=== PATIENT | female | born 2000 | race Caucasian/White ===

== ENCOUNTER → 2023-03-22 | Outpatient (CLI) | payer BC, SELFPAY ==
[2023-03-26 21:06] LABS: Chlamydia By Nucleic Acid AMP Negative (Negative); Gonococcus By Nucleic Acid AMP Negative (Negative)
[2023-03-29 20:22] LABS: HPV Reflexed? NOT INDICATED
== END | disposition home or self-care (01) ==
PROVIDERS: Referring Provider Advanced Practice Midwife; Visit Provider Advanced Practice Midwife
DX: Z34.90 Encounter for supervision of normal pregnancy, unspecified, unspecified trimester (principal)
CPT/HCPCS: 87086; 87491; 87591; 88175; G0145

== ENCOUNTER → 2023-04-19 | Outpatient (CLI) | payer BC, SELFPAY ==
--- OUTSIDE RECORDS SUMMARY | 2023-04-19 09:15 | XMS RPT_ITS | CCD ---
Author Name Unknown Address [address] [facility] [address] [place] [id number] Organization [facility] Care Team Providers Care Bellows Tester Name Role Phone Nathanata, Kamran Stone Unavailable Unavail able Salata, Kamran Blancohan Unavailable Unavail able Salata, Kamran Chase Unavailable Unavail able Salata, Kamran Chase Unavailable Unavail able Newbill, Uvaldo Marin Unavailable Unavailable Newbill, Uvaldo Marin Unavailable Unavailable MicahLaureen tineo L Unavailable Unavailable Pendlebury, Sg S Unavailable Unavailabl e Pendlebury, Sg S Unavailable Unavailabl e Micah, Laureen L Unavailable Unavailable Required, No Pcp Unavailable Unavailable Felipe Longo Unavailable Unavailable None, No PCP Unavailable Unavailable Unavailable Unavailable Alma Goss Unavailable No, Physician Primary Care Provider Unavailabl e NO, PHYSICIAN Primary Care Unavailable ROGELIO SCOTT Attending Unavailable NO, PHYSICIAN Primary Care Unavailable ROGELIO SCOTT Attending Unavailable ROGELIO SCOTTRY Attending Unavailable NO, PHYSICIAN Primary Care Unavailable Allergies Allergy Classification Reported Allergen(s) Allergy Type Date of Onset Reaction(s) Facility (1 source) cotton; Translations: [cotton] Propensity to adverse reactions to drug (disorder) [facility] Repository (6 sources) Metoclopramide; Translations: [Reglan] Drug Allergy 3 Anxiety, Other (See Comments) [facility] (4 sources) Silk Cotton Tree (Bombax Sabine); Translations: [SILK COTTON TREE (BOMBAX CEIBA)] Propensity to adverse reactions to drug 3 Other (See Comments) [facility] (1 source) Metoclopramide; Translations: [METOCLOPRAMIDE ] Drug Allergy 3 [facility] Repository Medications Current Medications Medication Drug Class(es) Dates Sig (Normalized) Sig (Original) acetaminophen 325 mg / oxyCODONE hydrochloride 5 mg oral tablet (1 source) Opioid Agonist Start: 02-26-2017 take 1 tablet by mouth every six hours acetaminophen-oxyCO DONE 325 mg-5 mg oral tablet ; 1-2 tab(s) orally every 4-6 hour as needed pain Quantity: 60 Refills: 0 Ordered: 26-Feb-2017 LeticiajenyYojana Start: 26-Feb-2017 Status: Other Generic Substitution Allowed Comments: Caution federal law prohibits the transfer of this drug to any person other than the person for whom it was prescribed.May cause drowsiness. Alcohol may intensify this effect. Use care when operating dangerous machinery.This prescription cannot be refilled.This product contains acetaminophen. Do not use with any other product containing acetaminophen to prevent possible liver damage.Using more of this medication than prescribed may cause serious breathing problems. Completed/Discontinued Medications Medication Drug Class(es) Dates Sig (Normalized) Sig (Original) busPIRone hydrochloride 5 mg oral tablet (3 sources) Start: 12-07-2021 take 1 tablet by mouth three times daily as needed for anxiety busPIRone HCl - 5 MG Oral Tablet TAKE 1 TABLET 3 times daily PRN anxiety Quantity: 90 Refills: 0 Ordered: 07-Dec-2021 Alma Hallman Start : 07-Dec-2021 Active gabapentin 300 mg oral capsule (6 sources) Anti-epileptic Agent Start: 12-06-2021 take 1 capsule by mouth at bedtime Gabapentin 300 MG Oral Capsule TAKE 1 CAPSULE Bedtime Quantity: 30 Refills: 11 Ordered: 26-Jul-2022 Regina Tucker DO Start : 06-Dec-2021 Active ibuprofen 800 mg oral tablet (4 sources) Nonsteroidal Anti-inflammatory Drug Start: 02-17-2020 End: 02-26-2020 take 1 tablet by mouth twice daily at mealtime IBU 800 mg oral tablet ; 1 tab(s) orally 2 times a day Quantity: 20 Refills: 0 Ordered: 17-Feb-2020 Johnny Prado Start: 17-Feb-2020 End: 26-Feb-2020 Generic Substitution Allowed Comments: Do not take this drug if you are .It is very important that you take or use this exactly as directed. Do not skip doses or discontinue unless directed by your doctor.May cause drowsiness or dizziness.Obtain medical advice before taking any non-prescription drugs as some may affect the action of this medication.Take with food or milk. Problems Active Problems Problem Classification Problem Date Documented Da te Episodic/Chronic Administrative/social admission (3 sources) Patient encounter status; Translations: [Other reasons for seeking consultation] Episodic Anxiety disorders (3 sources) Anxiety; Translations: [Anxiety state, unspecified] Chronic Cardiac dysrhythmias (3 sources) Tachycardia; Translations: [Tachycardia, unspecified] Episodic Deficiency and other anemia (3 sources) Hemoglobin low; Translations: [Anemia, unspecified] Episodic Esophageal disorders (3 sources) Gastroesophageal reflux disease; Translations: [Esophageal reflux] Chronic Headache; including migraine (2 sources) Headache; Translations: [Headache] 12-04-2021 Episodic Headache; including migraine (2 sources) Headache; including migraine 12-03-2021 Past or Other Problems Problem Classification Problem Date Documented Da te Episodic/Chronic Other non-traumatic joint disorders (1 source) Pain in unspecified hip; Translations: [Pain in unspecified hip] Onset: 01-01-2017 Episodic Unclassified (1 source) Other specified joint disorders, unspecified hip; Translations: [Other specified joint disorders, unspecified hip] Onset: 02-26-2017 Results Test Name Value Interpretation Reference Range Facil ity Vital Signs Date Time Vital Sign Value Performing Clinician Facility 07-26-2022 11:35-0400 Body height 162.56 cm Alma Goss Work Phone: [facility] Work Phone: 07-26-2022 11:35-0400 Body mass index (BMI) [Ratio] 24.37 kg/m2 Alma Goss Work Phone: LD[facility]Uvsxsklwqdvc[facility] Work Phone: 07-26-2022 11:35-0400 Body surface area Derived from formula 1.69 m2 Alma Goss Work Phone: [facility]oxb[facility]epw[facility] Work Phone: 07-26-2022 11:35-0400 Body weight 64.41 kg Alma Goss Work Phone: JX[facility]Ks[facility]sy[facility] Work Phone: 07-26-2022 11:35-0400 Diastolic blood pressure 80 mm[Hg] Alma Goss Work Phone: DW[facility]Digiuqqflyno[facility] Work Phone: 07-26-2022 11:35-0400 Systolic blood pressure 118 mm[Hg] Alma Goss Work Phone: RW[facility]Cpohlclqykev[facility] Work Phone: 07-24-2022 09:27-0400 Body temperature 98.91 [degF] Rogelio Pomerene DPM Work Phone: [facility] 07-24-2022 09:27-0400 Diastolic blood pressure 78 mm[Hg] Rogelio Pomerene DPM Work Phone: [facility] 07-24-2022 09:27-0400 Heart rate 72 /min Rogelio Pomerene DPM Work Phone: [facility] 07-24-2022 09:27-0400 Systolic blood pressure 117 mm[Hg] Rogelio Carlita DPM Work Phone: [facility] 07-16-2022 09:01-0400 Body temperature 98.71 [degF] Rogelio Pomerene DPM Work Phone: [facility] 07-16-2022 09:01-0400 Diastolic blood pressure 64 mm[Hg] Rogelio Carlita DPM Work Phone: [facility] 07-16-2022 09:01-0400 Heart rate 84 /min Rogelio Pomerene DPM Work Phone: [facility] 07-16-2022 09:01-0400 Systolic blood pressure 103 mm[Hg] Rogelio Pomerene DPM Work Phone: [facility] 07-10-2022 08:13-0400 Body temperature 98.29 [degF] Rogelio Carlita DPM Work Phone: [facility] 07-10-2022 08:13-0400 Diastolic blood pressure 70 mm[Hg] Rogelio Carlita DPM Work Phone: [facility] 07-10-2022 08:13-0400 Heart rate 65 /min Rogelio Carlita DPM Work Phone: [facility] 07-10-2022 08:13-0400 Systolic blood pressure 108 mm[Hg] Rogelio Pomerene DPM Work Phone: [facility] 12-07-2021 07:49-0400 Body height 162.56 cm No PCP None [facility] Work Phone: 12-07-2021 07:49-0400 Body mass index (BMI) [Ratio] 24.72 kg/m2 No PCP None [facility] Work Phone: 12-07-2021 07:49-0400 Body surface area Derived from formula 1.7 m2 No PCP None [facility] Work Phone: 12-07-2021 07:49-0400 Body weight 65.31 kg No PCP None [facility] Work Phone: 12-07-2021 07:49-0400 Diastolic blood pressure 70 mm[Hg] No PCP None [facility] Work Phone: 12-07-2021 07:49-0400 Heart rate 83 /min No PCP None [facility] Work Phone: 12-07-2021 07:49-0400 SaO2% (BldA) [Mass fraction] 99 % No PCP None [facility] Work Phone: 12-07-2021 07:49-0400 Systolic blood pressure 110 mm[Hg] No PCP None [facility] Work Phone: 12-06-2021 10:44-0400 Body height 162.56 cm No PCP None [facility] Work Phone: 12-06-2021 10:44-0400 Body mass index (BMI) [Ratio] 24.47 kg/m2 No PCP None [facility] Work Phone: 12-06-2021 10:44-0400 Body surface area Derived from formula 1.69 m2 No PCP None [facility] Work Phone: 12-06-2021 10:44-0400 Body weight 64.67 kg No PCP None [facility] Work Phone: 12-06-2021 10:44-0400 Diastolic blood pressure 82 mm[Hg] No PCP None [facility] Work Phone: 12-06-2021 10:44-0400 Heart rate 83 /min No PCP None [facility] Work Phone: 12-06-2021 10:44-0400 Respiratory rate 20 /min No PCP None [facility] Work Phone: 12-06-2021 10:44-0400 Systolic blood pressure 121 mm[Hg] No PCP None [facility] Work Phone: 12-04-2021 01:30-0400 Diastolic blood pressure 68 mm[Hg] No Pcp Required [facility] 12-04-2021 01:30-0400 Heart rate 88 /min No Pcp Required [facility] 12-04-2021 01:30-0400 Respiratory rate 16 /min No Pcp Required [facility] 12-04-2021 01:30-0400 SaO2% (BldA) [Mass fraction] 98 % No Pcp Required [facility] 12-04-2021 01:30-0400 Systolic blood pressure 123 mm[Hg] No Pcp Required [facility] 12-03-2021 22:10-0400 Body height 165.1 cm No Pcp Required [facility] 12-03-2021 22:10-0400 Body temperature 99.14 [degF] No Pcp Required [facility] 12-03-2021 22:10-0400 Body weight 65.9 kg No Pcp Required [facility] Encounters Encounter Date Encounter Type Care Provider Facility Start: 07-26-2022 Office outpatient vi sit 15 minutes Alma Goss Work Phone: [facility] Work Phone: Start: 07-24-2022 End: 07-24-2022 ambulatory ROGELIO SCOTT [facility] Start: 07-24-2022 End: 07-24-2022 Postop follow up visit related to original px Rogelio Guadalupejuan manuel BeckhamPomerene DPM Work Phone: [facility] Procedures Date Procedure Procedure Detail Performing Clinician Start: 07-10-2022 NURSING COMMUNICATION D kaleb Butcherjuan manuel BeckhamCarlita DPM Work Phone: Start: 12-03-2021 End: 12-03-2021 EKG impression Felipe Longo Start: 02-26-2017 Anesthesia arthrosco pic hip joint procedure Kamran Mahmood Start: 02-26-2017 Arthroscopy hip surg ical w/removal loose/fb Kamran Mahmood Start: 02-26-2017 Arthroscopy hip w/acetabuloplasty Kamran Mahmood Start: 02-26-2017 Arthroscopy hip w/femoroplasty Kamran Mahmood Start: 02-26-2017 Injection anes lmbr/ thrc paravertbrl sympathetic Kamran Mahmood Start: 02-26-2017 Unlisted procedure arthroscopy Kamran Mahmood Start: 01-30-2017 Operative procedure on hip No PCP None Plan of Treatment Date Care Activity Detail Author Start: 04-10-2023 JAYCOBV, Provider: Regina Tucker, Status: Pen, Time: 1:40 PM FUVGENERAL, Provider: Regina Tucker, Status: Pen, Time: 1:40 PM [facility] Work Phone: Start: 11-30-2022 Influenza vaccination Sequential Influenza Vaccine (Season Ended) [facility] Start: 07-26-2022 FUVGENEROMAINE, Provider: Regina Tucker, Status: Pen, Time: 11:30 AM FUVGENERAL, Provider: Regina Tucker, Status: Pen, Time: 11:30 AM [facility] Work Phone: Start: 07-24-2022 End: 07-24-2022 Follow-up encounter 07/24/2022 9:15 AM EDT Follow-Up [facility] [address] [place] [address] Rogelio Scott, DPM [address] [place] [address] [facility] Physician [facility] Start: 07-16-2022 End: 07-16-2022 Patient encounter procedure 07/16/2022 9:00 AM EDT Office Visit [facility] Physician [facility] [address] [place] [id number] Rogelio Scott, DPM [address] [place] [address] [facility] Physician [facility] Start: 02-01-2018 Hepatitis C screening Hepatitis C Screening [facility] Start: 02-01-2015 HIV screening HIV Screening [facility] Start: 2012 Depression screening using PHQ-9 (Patient Health Questionnaire 9) score Depression Screening (PHQ-2/9) [facility] Start: 02-01-2011 Vaccination for human papillomavirus HPV Vaccines (1 - 2-dose series) [facility] Start: 02-01-2003 History and physical examination, annual for health maintenance Wellness Visit [facility] Start: 2000 COVID-19 Vaccine (#1) COVID-19 Vaccine (#1) [facility] Start: 2000 Screening for Chlamydia trachomatis Chlamydia Screening [facility] Start: 2000 Screening for malignant neoplasm of cervix Pap Smear [facility] Start: 2000 Tetanus vaccination Tetanus: Every 10yrs [facility] Payers Date Payer Category Payer Unknown [id number] 2017 Unknown 2000 Unknown [id number] 2000 Unknown [id number] [id number] 2000 Unknown [id number] [id number] 2000 Unknown [id number] [id number]. [id number] 1981 Unknown [id number] Unknown [id number] Social History Date Type Detail Facility [facility] Tobacco smoking consumption unknown [facility] Start: 07-10-2022 End: 07-24-2022 Denies alcohol consumption Denies alcohol consumption [facility] Work Phone: Start: 07-10-2022 [facility] Start: 07-10-2022 Tobacco use and exposure Smokeless tobacco non-user [facility] Start: 07-10-2022 End: 07-26-2022 Alcohol intake Lifetime non-drinker (finding) [facility] Start: 2000 Sex Assigned At Not on file [facility] Start: 07-10-2022 End: 07-24-2022 Gender identity Not on file [facility] Start: 06-30-2022 End: 07-24-2022 Exposure to SARS-CoV-2 (event) Not sure [facility] History of Present illness Narrative 07-26-2022 Rogelio Scott DPM - 07/26/2022 3:56 PM EDT Note Date & Type Note Facility 07-26-2022 History of Presen t illness Narrative Images from the original note were not included. Rogelio Scott DPM Patient Name: Elaine Peguero. . Date of : 2000, 22 y.o.. Gender: female. Subjective: Patient is a pleasant 22-year-old female who presents to clinic for follow-up evaluation of her left great toenail phenol matrixectomy procedure. States that she is doing well. Denies any pain. Admits to minimal drainage due to being on her feet every day. Has been soaking in Epsom salt as instructed. Denies fevers, chills, nausea, vomiting, chest pain, shortness of breath, or any other constitutional symptoms. Physical Examination: BP 117/78 (BP Location: Right arm, Patient Position: Sitting, BP Cuff Size: Adult) Pulse 72 Temp 98.9 F (37.2 C) (Infrared) LMP 06/30/2022 (Exact Date) General Appearance: Alert, cooperative, no distress, appears stated age. Podiatric Exam Vascular: DP and PT pulses are palpable 2/4. Capillary refill time is less than 3 secs to distal digits. Skin temperature is warm to warm from proximal tibial tuberosity to distal digit. Neurological: Gross sensation is intact. Protective sensation is intact. Dermatologic: The left great toenail is absent secondary to recent phenol matrixectomy procedure. Nail bed is clean and dry. No surrounding erythema, edema or any acute signs of infection. Interdigital spaces are clean dry and intact. Musculoskeletal: No pain on palpation to the dorsal aspect of the left great nailbed. Patient is able to wiggle digits. Ankle joint range of motion is intact. Muscle strength is 5/5 to dorsiflexors, plantar flexors, inverters and everters. Compartments soft and compressible. No calf pain Diagnoses: 1. Onychomycosis 2. Pain due to onychomycosis of toenail of left foot Assessment/Plan: Patient was seen and evaluated. Discussed all clinical findings. Patient is doing well overall postoperatively. No surrounding erythema, edema or any acute signs of infection. Patient can stop soaking at this time. Patient may resume all activity without restriction. All questions were answered to patient satisfaction. Patient understands to call with any questions or concerns. Follow-up as needed. This note was partially created using voice recognition software and is inherently subject to errors including those of syntax and sound-alike substitutions which may escape proofreading. In such instances, original meaning may be extrapolated by contextual derivation. Rogelio Scott DPM, MS Podiatric Physician & Surgeon documented in this encounter [facility] History of Present illness Narrative 07-16-2022 Rogelio Scott DPM - 07/16/2022 9:26 AM EDT Note Date & Type Note Facility 07-16-2022 History of Presen t illness Narrative Images from the original note were not included. Rogelio Scott DPM Patient Name: Elaine Peguero. . Date of : 2000, 22 y.o.. Gender: female. Subjective: Patient is a pleasant 22-year-old female who presents to clinic for follow-up evaluation of her left great toenail phenol matrixectomy procedure. States that she is doing well. Denies any pain. Admits to drainage due to being on her feet every day. Has been soaking in Epsom salt as instructed. Denies fevers, chills, nausea, vomiting, chest pain, shortness of breath, or any other constitutional symptoms. Past Medical History: Diagnosis Date GERD (gastroesophageal reflux disease) Occipital neuralgia Tachycardia Past Surgical History: Procedure Laterality Date DISLOCATION WITH REPAIR AND RECONSTRUCTION HIP Left Social History Socioeconomic History Marital status: Tobacco Use Smoking status: Never Smokeless tobacco: Never Substance and Sexual Activity Alcohol use: Never Drug use: Never Physical Examination: BP 103/64 (BP Location: Left arm, Patient Position: Sitting, BP Cuff Size: Adult) Pulse 84 Temp 98.7 F (37.1 C) (Infrared) LMP 06/30/2022 (Exact Date) General Appearance: Alert, cooperative, no distress, appears stated age. Podiatric Exam Vascular: DP and PT pulses are palpable 2/4. Capillary refill time is less than 3 secs to distal digits. Skin temperature is warm to warm from proximal tibial tuberosity to distal digit. Neurological: Gross sensation is intact. Protective sensation is intact. Dermatologic: The left great toenail is absent secondary to recent phenol matrixectomy procedure. No surrounding erythema, edema or any acute signs of infection. Interdigital spaces are clean dry and intact. Musculoskeletal: No pain on palpation to the dorsal aspect of the left great nailbed. Patient is able to wiggle digits. Ankle joint range of motion is intact. Muscle strength is 5/5 to dorsiflexors, plantar flexors, inverters and everters. Compartments soft and compressible. No calf pain Diagnoses: 1. Onychomycosis 2. Pain due to onychomycosis of toenail of left foot Assessment/Plan: Patient was seen and evaluated. Discussed all clinical findings. Patient is doing well overall postoperatively with exception of serous drainage noted from the nailbed. No surrounding erythema, edema or any acute signs of infection. Instructed the patient to continue soaking in Epsom salt twice daily. Patient is to follow-up in 1 week for evaluation All questions were answered to patient satisfaction. Patient understands to call with any questions or concerns. This note was partially created using voice recognition software and is inherently subject to errors including those of syntax and sound-alike substitutions which may escape proofreading. In such instances, original meaning may be extrapolated by contextual derivation. Rogelio Scott DPM, MS Podiatric Physician & Surgeon documented in this encounter [facility] Instructions 07-10-2022 Patient Instructions Note Date & Type Note Facility 07-10-2022 Instructions Phuong Hernández, TECHNOLOGIST - 07/10/2022 9:05 AM EDT POST NAIL SURGERY INSTRUCTIONS: General Information: Stay off your feet as much as possible today. You may wear any shoe, sandal, or open toe footwear that does not squeeze or constrict your toe. Your toe may remain numb for up to 6-10 hours after the procedure. Bleeding/ Drainage: Slight bleeding, discoloration and/ or red, pink, orange drainage is normal. Discomfort: You can elevate your foot to help alleviate minor swelling, bleeding and discomfort. You may also take aspirin, Tylenol or other over- the- counter pain relievers as directed on the package. If pain is not controlled to your comfort, please contact our office. Removing the surgical bandage/ dressing: The day after the surgery, carefully remove the dressing and shower/ bathe as normal. If the gauze or dressing sticks to the surgical area, dampen it with water or shower/ bathe with the dressing in place. This will make the dressing easier to remove with minimal discomfort. Blot dry with a clean cloth. A band-aid and antibiotic ointment should be changed twice daily on the surgical area until your follow-up appointment with the provider. Soaking Instructions Remove the dressing the day after your procedure and shower/ bathe as normal. Blot dry with a clean cloth. Soak the foot twice daily in warm soapy water or use a mixture of 1 quart warm water with cup Epsom salts. After soaking, apply antibiotic ointment and a Band-Aid twice daily until follow-up appointment. documented in this encounter [facility] History of Present illness Narrative 07-10-2022 Rogelio Scott DPM - 07/10/2022 8:37 AM EDT Note Date & Type Note Facility 07-10-2022 History of Presen t illness Narrative Images from the original note were not included. NEW Patient Visit Rogelio Scott DPM Patient Name: Elaine Peguero. . Date of : 2000, 22 y.o.. Gender: female. Subjective: Patient is a pleasant 22-year-old female who presents to clinic for left great toe nail that is fungal and thickened and causes her pain with with ambulation. Patient would like it to get it removed permanently as was previously done with her right great toenail. No other pedal complaints at this time. Denies fevers, chills, nausea, vomiting, chest pain, shortness of breath, or any other constitutional symptoms. Past Medical History: Diagnosis Date GERD (gastroesophageal reflux disease) Occipital neuralgia Tachycardia Past Surgical History: Procedure Laterality Date DISLOCATION WITH REPAIR AND RECONSTRUCTION HIP Left Social History Socioeconomic History Marital status: Tobacco Use Smoking status: Never Smokeless tobacco: Never Substance and Sexual Activity Alcohol use: Never Drug use: Never Physical Examination: BP 108/70 (BP Location: Left arm, Patient Position: Sitting, BP Cuff Size: Adult) Pulse 65 Temp 98.3 F (36.8 C) (Infrared) LMP 06/30/2022 (Exact Date) General Appearance: Alert, cooperative, no distress, appears stated age. Podiatric Exam Vascular: DP and PT pulses are palpable 2/4. Capillary refill time is less than 3 secs to distal digits. Skin temperature is warm to warm from proximal tibial tuberosity to distal digit. Neurological: Gross sensation is intact. Protective sensation is intact. Dermatologic: The left great toenail is thickened, dystrophic and mycotic with subungual debris. No surrounding erythema, edema or any acute signs of infection. Interdigital spaces are clean dry and intact. Musculoskeletal: Pain on palpation to the dorsal aspect of the left great toenail. Patient is able to wiggle digits. Ankle joint range of motion is intact. Muscle strength is 5/5 to dorsiflexors, plantar flexors, inverters and everters. Compartments soft and compressible. No calf pain Diagnoses: 1. Onychomycosis 2. Pain due to onychomycosis of toenail of left foot Assessment/Plan: Patient was seen and evaluated. Discussed all clinical findings. -With patient's painful and onychomycotic left great toenail, I discussed performing an in office nail surgery involving phenol matrixectomy. Patient is agreeable to this plan. See procedure below. PROCEDURE NOTE: Written consent was obtained prior to beginning the procedure. All risks and benefits were discussed with patient. No guarantees were made. PREOPERATIVE DX: Painful onychomycosis, left great toe nail POSTOPERATIVE DX: Painful onychomycosis, left great toe nail PROCEDURE PERFORMED: Phenol matrixectomy, left great toenail The patient's left great toe was anesthetized using 5 cc of 2% lidocaine plain. The left great toe was scrubbed and prepped under proper sterile technique. The left great toenail was excised. No residual nail spicules were found. Phenol was utilized to cauterize the nail matrix. The surgical site was flushed copiously with sterile saline. Applied wound gel to the surgical site. The left great toe was then dressed using 4 x 4, Kerlix and Coban. Patient tolerated the procedure well without any complications. -At the end of the procedure, the patient was provided with at home instructions. -Patient was educated on the signs of infection such as excessive redness, swelling, drainage, malodor, pain, etc. Patient understands to call our office immediately or to report to the emergency room. -All questions were answered to patient satisfaction. Patient understands to call with any questions or concerns. -Patient will return to clinic in 1 week for evaluation This note was partially created using voice recognition software and is inherently subject to errors including those of syntax and sound-alike substitutions which may escape proofreading. In such instances, original meaning may be extrapolated by contextual derivation. Rogelio Scott DPM, MS Podiatric Physician & Surgeon documented in this encounter [facility] History of Present illness Narrative 12-06-2021 Note Date & Type Note Facility 12-06-2021 History of Present illness Narrative Presents today for TO ESTABLISH NEW. C/O TACHYCARDIA ON/OFF X SEVERAL WEEKS - MONTH modifying factors consists of SEEN AT [facility] ER ON 12/06/21. EKG UNREMARKABLE associated symptoms consist of GROSSMAN. ANXIETY. BURNING CP. prior treatment consists of medication NONEC/O INSOMNIA X 2 WEEKS modifying factors consists of SHE HAS A H/O [place] WHEN SHE WAS BABY. NO RECENT TESTING DONE associated symptoms consist of WAKES UP GASPING ON/OFF. FATIGUE. prior treatment consists of medication MELATONINHA- OCCIPITAL NEURALGIA. FOLLOWING WITH NEUROINSOMNIA-SAW NEURO YESTERDAY AND STARTED ON GABAPENTIN [facility] Work Phone: Evaluation note Note Date & Type Note Facility documented in this encounter [facility] Evaluation note Note Date & Type Note Facility documented in this encounter [facility] Evaluation note Note Date & Type Note Facility documented in this encounter [facility] History of Present illness Narrative Note Date & Type Note Facility History of Present illness Narrative Ms. Dobson is a 22 year old female presenting to the neurology clinic today for follow up. The patient was accompanied to the appointment by her mother who significantly contributed to the history.She has been taken it at night and she tried to stop taking it however the pain came back. The symptoms still come and go. She doesn't want to get an injection. She does sometimes get the pain above her eyebrow. She is not getting any side effects.She was diagnosed with tachycardia and GERD. She is omeprazole daily.She is afraid to take buspar. [facility] Work Phone: Summary Purpose Family History No Family History Records FoundUnknown Family Member Name Dates Details Family history of coronary a rtery disease: Mother(V17.3, Z82.49) Status:Active Family history of autoimmune disorder: Mother(V19.8, Z83.2) Status:Active Family history of lung cance r: Maternal Grandmother, Maternal Grandfather(V16.1, Z80.1) Status:Active Gastroparesis: Mother Status:Active Family history of myocardial infarction: Mother(V17.3, Z82.49) Comments:10/25/2021; Status:Active Family history of deep venou s thrombosis: Mother(V17.49, Z82.49) Status:Active No pertinent family history: Father(V49.89, Z78.9) Status:Active Unknown Family Member Name Dates Details Family history of coronary a rtery disease: Mother(V17.3, Z82.49) Status:Active Family history of autoimmune disorder: Mother(V19.8, Z83.2) Status:Active Family history of lung cance r: Maternal Grandmother, Maternal Grandfather(V16.1, Z80.1) Status:Active Gastroparesis: Mother Status:Active Family history of myocardial infarction: Mother(V17.3, Z82.49) Comments:10/25/2021; Status:Active Family history of deep venou s thrombosis: Mother(V17.49, Z82.49) Status:Active No pertinent family history: Father(V49.89, Z78.9) Status:Active Unknown Family Member Name Dates Details Family history of coronary a rtery disease: Mother(V17.3, Z82.49) Status:Active Family history of autoimmune disorder: Mother(V19.8, Z83.2) Status:Active Family history of lung cance r: Maternal Grandmother, Maternal Grandfather(V16.1, Z80.1) Status:Active Gastroparesis: Mother Status:Active Family history of myocardial infarction: Mother(V17.3, Z82.49) Comments:10/25/2021; Status:Active Family history of deep venou s thrombosis: Mother(V17.49, Z82.49) Status:Active No pertinent family history: Father(V49.89, Z78.9) Status:Active Advance Directives No Advanced Directives Records FoundNo Advanced Directives Records FoundNo Advanced Directives Records FoundNo Advanced Directives Records FoundNo Advanced Directives Records FoundNo Advanced Directives Records Found Reason for Referral * tachycardia, headachetachycardia, headache Chief Complaint EST NEW; ED F/U -TACHYCARDIA, GROSSMAN AND INSOMNIA-SAW NEURO YESTERDAY AND STARTED ON GABAPENTINpt is here for: occ neuralgia Additional Source Comments INFORMATION SOURCE (unrecogn ized section and content) DATE CREATED AUTHOR AUTHOR'S ORGANIZ ATION 09/24/2017 [facility] DATE CREATED AUTHOR AUTHOR'S ORGANIZ ATION 03/29/2018 [facility] DATE CREATED AUTHOR AUTHOR'S ORGANIZ ATION 12/09/[address] [facility] DATE CREATED AUTHOR AUTHOR'S ORGANIZ ATION 07/25/2022 [facility] DATE CREATED AUTHOR AUTHOR'S ORGANIZ ATION 08/02/2022 [employer] <item> Privacy Markings (unrecogniz ed section and content) Section Author: Gem Dupree PROHIBITION ON REDISCLOSURE OF CONFIDENTIAL INFORMATION This notice accompanies a disclosure of information concerning a client made to you with the consent of such client. Reason for Visit (unrecogniz ed section and content) Reason Comments Post-op Post op left great p henol matrixectomy. Care Teams (unrecognized sec tion and content) Bellows Tester Relationship Specialty Start Date End Date No, Physician [facility] PCP - General 07/10/22 Bellows Tester Relationship Specialty Start Date End Date No, Physician [facility] PCP - General 07/10/22 FOR RECORDS PERTAINING TO PATIENTS WHO ARE OR HAVE BEEN ENROLLED IN A CHEMICAL DEPENDENCY/SUBSTANCEABUSE PROGRAM, SOME INFORMATION MAY BE OMITTED. This clinical summary was aggregated from multiple sources. Caution should be exercised in using it in the provision of clinical care. This summary normalizes information from multiple sources, and as a consequence, information in this document may materially change the coding, format and clinical context of patient data. In addition, data may be omitted in some cases. CLINICAL DECISIONS SHOULD BE BASED ON THE PRIMARY CLINICAL RECORDS. [facility]. provides no warranty or guarantee of the accuracy or completeness of information in this document.
[2023-04-19 09:35] LABS: Absolute Lymphocyte Count 1.32 X10^3/uL (0.83-4.51); Basophil# 0.03 X10^3/uL; Basophil% 0.3 % (0-1); Eosinophil# 0.05 X10^3/uL; Eosinophils% 0.6 % (0-5); Hematocrit 31.9 % (37-47); Hemoglobin 9.8 g/dL (12.0-15.0); Lymphocyte # 1.32 X10^3/ul (0.83-4.51); Lymphocyte % 14.7 % (19-41); Mean Corp Hgb Conc 30.7 g/dL (32-36); Mean Corpuscular Hgb 24.4 pg (27.0-32.0); Mean Corpuscular Volume 79.4 fL (81-99); Mean Platelet Vol. 9.7 fl (6.2-12.0); Monocyte# 0.57 X10^3/uL; Monocyte% 6.3 % (0-10); NRBC Flagged by Analyzer 0 % (0-5); Neutrophil # 6.97 X10^3/uL (2.7-7.7); Neutrophil % 77.7 % (47-70); Platelet Count 235 K/mm3 (150-450); RBC Distribution Width CV 16.7 % (11.6-14.6); RBC Distribution Width SD 47.5 fl (35.1-43.9); Red Blood Count 4.02 M/mm3 (4.2-5.4)
[2023-04-19 10:32] LABS: NATERA MAILED SPECIMEN
[2023-04-19 10:45] LABS: HIV - WCH Non-Reactive (Nonreactive); Hepatitis B Surface Antigen Non-Reactive (Nonreactive); Hepatitis C Antibody Non-Reactive (Nonreactive); Rubella IgG Reactive (Nonreactive); Syphilis Antibodies Non-reactive
== END | disposition home or self-care (01) ==
PROVIDERS: Referring Provider Advanced Practice Midwife; Visit Provider Advanced Practice Midwife
DX: Z34.81 Encounter for supervision of other normal pregnancy, first trimester (principal)
CPT/HCPCS: 36415; 85025; 86703; 86762; 86780; 86803; 86850; 86900; 86901; 87340

== ENCOUNTER → 2023-04-22 | Outpatient (CLI) | payer BC, SELFPAY ==
--- OUTSIDE RECORDS SUMMARY | 2023-04-22 17:19 | XMS RPT_ITS | CCD ---
Author Name Unknown Address [address] [place] [address] Organization [facility] Care Team Providers Care Telephone Quotation Clerk Name Role Phone Nathanata, Kamran Stone Unavailable [...] to adverse reactions to drug (disorder) [facility] Repository (6 sources) Metoclopramide; Translations: [Reglan] Drug Allergy 3 Anxiety, Other (See Comments) [facility] (4 sources) Silk [place] (B[place]ax [place]); Translations: [SILK COTTON TREE (BOMBAX [place])] Propensity to adverse reactions to drug 3 Other (See Comments) [facility] (1 source) Metoclopramide; Translations: [METOCLOPRAMIDE ] Drug Allergy 3 [facility] Repository Medications Current Medications Medication [...] height 162.56 cm Alma Goss Work Phone: [facility] [facility] Work Phone: 07-26-2022 11:35-0400 Body mass index (BMI) [Ratio] 24.37 kg/m2 Alma Goss Work Phone: [facility] [facility] Work Phone: 07-26-2022 11:35-0400 Body surface area Derived from formula 1.69 m2 Alma Goss Work Phone: QV[facility]vs[facility] [facility] Work Phone: 07-26-2022 11:35-0400 Body weight 64.41 kg Alma Goss Work Phone: DU[facility]la[facility]qqyokg[facility] [facility] Work Phone: 07-26-2022 11:35-0400 Diastolic blood pressure 80 mm[Hg] Alma Goss Work Phone: EZ[facility]iymvszbsaye[facility] [facility] Work Phone: 07-26-2022 11:35-0400 Systolic blood pressure 118 mm[Hg] Alma Goss Work Phone: TU[facility]bm[facility]ae[facility] [facility] Work Phone: 07-24-2022 09:27-0400 Body temperature 98.91 [degF] Rogelio [place] DPM Work Phone: [facility] 07-24-2022 09:27-0400 Diastolic blood pressure 78 mm[Hg] Rogelio [place] DPM Work Phone: [facility] 07-24-2022 09:27-0400 Heart rate 72 /min Rogelio [place] DPM Work Phone: [facility] 07-24-2022 09:27-0400 Systolic blood pressure 117 mm[Hg] Rogelio Carlita DPM Work Phone: [facility] 07-16-2022 09:01-0400 Body temperature 98.71 [degF] Rogelio [place] DPM Work Phone: [facility] 07-16-2022 09:01-0400 Diastolic blood pressure 64 mm[Hg] Rogelio Carlita DPM Work Phone: [facility] 07-16-2022 09:01-0400 Heart rate 84 /min Rogelio [place] DPM Work Phone: [facility] 07-16-2022 09:01-0400 Systolic blood pressure 103 mm[Hg] Rogelio [place] DPM Work Phone: [facility] 07-10-2022 08:13-0400 Body temperature 98.29 [degF] Rogelio Carlita DPM Work Phone: [facility] 07-10-2022 08:13-0400 Diastolic blood pressure 70 mm[Hg] Rogelio Carlita DPM Work Phone: [facility] 07-10-2022 08:13-0400 Heart rate 65 /min Rogelio Carlita DPM Work Phone: [facility] 07-10-2022 08:13-0400 Systolic blood pressure 108 mm[Hg] Rogelio [place] DPM Work Phone: [facility] 12-07-2021 07:49-0400 Body height 162.56 cm No PCP None [facility] Work Phone: 12-07-2021 07:49-0400 Body mass index (BMI) [Ratio] 24.72 kg/m2 No PCP None [facility] Work Phone: 12-07-2021 07:49-0400 Body surface area Derived from formula 1.7 m2 No PCP None [facility] Work Phone: 12-07-2021 07:49-0400 Body weight 65.31 kg No PCP None [facility] Work Phone: 12-07-2021 07:49-0400 Diastolic blood pressure 70 mm[Hg] No PCP None [facility] Work Phone: 12-07-2021 07:49-0400 Heart rate 83 /min No PCP None [facility] Work Phone: 12-07-2021 07:49-0400 SaO2% (BldA) [Mass fraction] 99 % No PCP None [facility] Work Phone: 12-07-2021 07:49-0400 Systolic blood pressure 110 mm[Hg] No PCP None [facility] Work Phone: 12-06-2021 10:44-0400 Body height 162.56 cm No PCP None [facility] Work Phone: 12-06-2021 10:44-0400 Body mass index (BMI) [Ratio] 24.47 kg/m2 No PCP None [facility] Work Phone: 12-06-2021 10:44-0400 Body surface area Derived from formula 1.69 m2 No PCP None [facility] Work Phone: 12-06-2021 10:44-0400 Body weight 64.67 kg No PCP None [facility] Work Phone: 12-06-2021 10:44-0400 Diastolic blood pressure 82 mm[Hg] No PCP None [facility] Work Phone: 12-06-2021 10:44-0400 Heart rate 83 /min No PCP None [facility] Work Phone: 12-06-2021 10:44-0400 Respiratory rate 20 /min No PCP None [facility] Work Phone: 12-06-2021 10:44-0400 Systolic blood pressure 121 mm[Hg] No PCP None [facility] Work Phone: 12-04-2021 01:30-0400 Diastolic blood pressure 68 mm[Hg] No Pcp Required [facility] 12-04-2021 01:30-0400 Heart rate 88 /min No Pcp Required [facility] 12-04-2021 01:30-0400 Respiratory rate 16 /min No Pcp Required [facility] 12-04-2021 01:30-0400 SaO2% (BldA) [Mass fraction] 98 % No Pcp Required [facility] 12-04-2021 01:30-0400 Systolic blood pressure 123 mm[Hg] No Pcp Required [facility] 12-03-2021 22:10-0400 Body height 165.1 cm No Pcp Required [facility] 12-03-2021 22:10-0400 Body temperature 99.14 [degF] No Pcp Required [facility] 12-03-2021 22:10-0400 Body weight 65.9 kg No Pcp Required [facility] Encounters Encounter Date Encounter Type Care Provider Facility Start: 07-26-2022 Office outpatient vi sit 15 minutes Alma Goss Work Phone: [facility] Work Phone: Start: 07-24-2022 End: 07-24-2022 ambulatory ROGELIO SCOTT [facility] Start: 07-24-2022 End: 07-24-2022 Postop follow up visit related to original px Rogelio Guadalupejuan manuel Beckham[place] DPM Work Phone: [facility] Procedures Date Procedure Procedure [...] Regina Tucker, Status: Pen, Time: 1:40 PM [facility] Work Phone: Start: 11-30-2022 Influenza vaccination Sequential Influenza Vaccine (Season Ended) [facility] Start: 07-26-2022 FUVGENEROMAINE, Provider: Regina Tucker, Status: Pen, Time: 11:30 AM FUVGENERAL, Provider: Regina Tucker, Status: Pen, Time: 11:30 AM [facility] Work Phone: Start: 07-24-2022 End: 07-24-2022 Follow-up encounter 07/24/2022 9:15 AM EDT Follow-Up [facility] [address] [place] [address] Rogelio Scott, DPM [address] [place] [address] [facility] Start: 07-16-2022 End: 07-16-2022 Patient encounter procedure 07/16/2022 9:00 AM EDT Office Visit [facility] [address] [place] [phone] Rogelio Scott, DPM [address] [place] [address] [facility] Start: 02-01-2018 Hepatitis C screening Hepatitis C Screening [facility] Start: 02-01-2015 HIV screening HIV Screening [facility] Start: 2012 Depression screening using PHQ-9 (Patient Health Questionnaire 9) score Depression Screening (PHQ-2/9) [facility] Start: 02-01-2011 Vaccination for human papillomavirus HPV Vaccines (1 - 2-dose series) [facility] Start: 02-01-2003 History and physical examination, annual for health maintenance Wellness Visit [facility] Start: 2000 COVID-19 Vaccine (#1) COVID-19 Vaccine (#1) [facility] Start: 2000 Screening for Chlamydia trachomatis Chlamydia Screening [facility] Start: 2000 Screening for malignant neoplasm of cervix Pap Smear [facility] Start: 2000 Tetanus vaccination Tetanus: Every 10yrs [facility] Payers Date Payer Category Payer Unknown [id number] 2017 Unknown 2000 Unknown [id number] 2000 Unknown [id number] [id number] 2000 Unknown [id number] [id number] 2000 Unknown [id number] [id number]. [id number] 1981 Unknown [id number] Unknown [id number] Social History Date Type Detail Facility [facility] Tobacco smoking consumption unknown [facility] Start: 07-10-2022 End: 07-24-2022 Denies alcohol consumption Denies alcohol consumption [facility] Work Phone: Start: 07-10-2022 [facility] Start: 07-10-2022 Tobacco use and exposure Smokeless tobacco non-user [facility] Start: 07-10-2022 End: 07-26-2022 Alcohol intake Lifetime non-drinker (finding) [facility] Start: 2000 Sex Assigned At Not on file [facility] Start: 07-10-2022 End: 07-24-2022 Gender identity Not on file [facility] Start: 06-30-2022 End: 07-24-2022 Exposure to SARS-CoV-2 (event) Not sure [facility] History of Present illness Narrative 07-26-2022 Rogelio [...] Physician & Surgeon documented in this encounter [facility] History of Present illness Narrative 07-16-2022 Rogelio [...] Physician & Surgeon documented in this encounter [facility] Instructions 07-10-2022 Patient Instructions Note Date & [...] until follow-up appointment. documented in this encounter [facility] History of Present illness Narrative 07-10-2022 Rogelio [...] Physician & Surgeon documented in this encounter [facility] History of Present illness Narrative 12-06-2021 Note Date & Type Note Facility 12-06-2021 History of Present illness Narrative Presents today for TO ESTABLISH NEW. C/O TACHYCARDIA ON/OFF X SEVERAL WEEKS - MONTH modifying factors consists of SEEN AT [facility] ER ON 12/06/21. EKG UNREMARKABLE associated symptoms [...] NEUROINSOMNIA-SAW NEURO YESTERDAY AND STARTED ON GABAPENTIN [facility] Work Phone: Evaluation note Note Date & Type Note Facility documented in this encounter [facility] Evaluation note Note Date & Type Note Facility documented in this encounter [facility] Evaluation note Note Date & Type Note Facility documented in this encounter [facility] History of Present illness Narrative Note Date [...] omeprazole daily.She is afraid to take buspar. [facility] Work Phone: Summary Purpose Family History [...] DATE CREATED AUTHOR AUTHOR'S ORGANIZ ATION 09/24/2017 [facility] DATE CREATED AUTHOR AUTHOR'S ORGANIZ ATION 03/29/2018 [facility] DATE CREATED AUTHOR AUTHOR'S ORGANIZ ATION 12/09/2021 [facility] DATE CREATED AUTHOR AUTHOR'S ORGANIZ ATION 07/25/2022 [facility] DATE CREATED AUTHOR AUTHOR'S ORGANIZ ATION 08/02/2022 [...] Care Teams (unrecognized sec tion and content) Telephone Quotation Clerk Relationship Specialty Start Date End Date No, Physician [facility] PCP - General 07/10/22 Telephone Quotation Clerk Relationship Specialty Start Date End Date No, Physician [facility] PCP - General 07/10/22 FOR RECORDS PERTAINING [...] BE BASED ON THE PRIMARY CLINICAL RECORDS. [facility]. provides no warranty or guarantee of the accuracy or completeness of information in this document.
== END | disposition home or self-care (01) ==
LOC: LABSPEC 17:01
PROVIDERS: Referring Provider Registered Nurse; Visit Provider Registered Nurse
DX: O23.40 Unspecified infection of urinary tract in pregnancy, unspecified trimester (principal); Z3A.00 Weeks of gestation of pregnancy not specified
CPT/HCPCS: 87086

== ENCOUNTER → 2023-05-29 | Outpatient (CLI) | payer BC, SELFPAY | END | disposition home or self-care (01) | LOC: LABSPEC 16:07 | PROVIDERS: Referring Provider Physician Assistant; Visit Provider Physician Assistant | DX: N39.0 Urinary tract infection, site not specified (principal) | CPT/HCPCS: 87086 ==

== ENCOUNTER → 2023-07-12 | Outpatient (CLI) | payer BC, SELFPAY | END | disposition home or self-care (01) | LOC: LABSPEC 16:43 | PROVIDERS: Referring Provider Obstetrics & Gynecology; Visit Provider Obstetrics & Gynecology | DX: N39.0 Urinary tract infection, site not specified (principal); N89.8 Other specified noninflammatory disorders of vagina | CPT/HCPCS: 87070; 87077; 87086; 87088; 87205 ==

== ENCOUNTER → 2023-08-09 | Outpatient (CLI) | payer BC, SELFPAY ==
[2023-08-09 13:25] LABS: Absolute Lymphocyte Count 1.44 X10^3/uL (0.83-4.51); Absolute Neutrophil Count 7.4 X10^3/uL (2.0-7.7); Basophil# 0.03 X10^3/uL; Basophil% 0.3 % (0-1); Eosinophil# 0.07 X10^3/uL; Eosinophils% 0.7 % (0-5); Hematocrit 33.9 % (37-47); Hemoglobin 10.8 g/dL (12.0-15.0); Lymphocyte # 1.44 X10^3/ul (0.83-4.51); Mean Corp Hgb Conc 31.9 g/dL (32-36); Mean Corpuscular Hgb 28.6 pg (27.0-32.0); Mean Corpuscular Volume 89.9 fL (81-99); Mean Platelet Vol. 9.7 fl (6.2-12.0); Monocyte# 0.56 X10^3/uL; Monocyte% 5.8 % (0-10); NRBC Flagged by Analyzer 0 % (0-5); Neutrophil # 7.37 X10^3/uL (2.7-7.7); Neutrophil % 77.1 % (47-70); Platelet Count 219 K/mm3 (150-450); RBC Distribution Width CV 13.3 % (11.6-14.6); RBC Distribution Width SD 43.5 fl (35.1-43.9); Red Blood Count 3.77 M/mm3 (4.2-5.4); White Blood Count 9.6 K/mm3 (4.4-11.0)
[2023-08-09 13:41] LABS: Glucose Challenge Gest 1H 50g 117 mg/dL (70-140)
[2023-08-09 14:13] LABS: HIV - WCH Non-Reactive (Nonreactive); Syphilis Antibodies Non-reactive
== END | disposition home or self-care (01) ==
LOC: LAB 12:51
PROVIDERS: Referring Provider Obstetrics & Gynecology; Visit Provider Obstetrics & Gynecology
DX: O09.90 Supervision of high risk pregnancy, unspecified, unspecified trimester (principal); Z3A.00 Weeks of gestation of pregnancy not specified; Z13.1 Encounter for screening for diabetes mellitus
CPT/HCPCS: 36415; 82950; 85025; 86703; 86780

== ENCOUNTER → 2023-09-19 | Outpatient (CLI) | payer BC, SELFPAY ==
[2023-09-19 09:20] LABS: Absolute Lymphocyte Count 1.52 X10^3/uL (0.83-4.51); Absolute Neutrophil Count 7.1 X10^3/uL (2.0-7.7); Basophil# 0.03 X10^3/uL; Basophil% 0.3 % (0-1); Eosinophils% 1.1 % (0-5); Hematocrit 35.1 % (37-47); Hemoglobin 11.6 g/dL (12.0-15.0); Lymphocyte # 1.52 X10^3/ul (0.83-4.51); Lymphocyte % 16.2 % (19-41); Mean Corpuscular Hgb 29.7 pg (27.0-32.0); Mean Corpuscular Volume 89.8 fL (81-99); Mean Platelet Vol. 9.4 fl (6.2-12.0); Monocyte% 6.4 % (0-10); NRBC Flagged by Analyzer 0 % (0-5); Neutrophil # 7.05 X10^3/uL (2.7-7.7); Platelet Count 192 K/mm3 (150-450); RBC Distribution Width CV 13.1 % (11.6-14.6); RBC Distribution Width SD 42.3 fl (35.1-43.9); Red Blood Count 3.91 M/mm3 (4.2-5.4); White Blood Count 9.4 K/mm3 (4.4-11.0)
[2023-09-19 17:17] LABS: Xtra Tube EP Lab EXTRA TUBE
== END | disposition home or self-care (01) ==
LOC: PAVLAB 08:57
PROVIDERS: Visit Provider Nurse Practitioner Women's Health
DX: O99.019 Anemia complicating pregnancy, unspecified trimester (principal); Z3A.00 Weeks of gestation of pregnancy not specified
CPT/HCPCS: 36415; 85025

== ENCOUNTER 2023-11-13 19:13 | Inpatient (IN) | payer BC, SELFPAY ==
[2023-11-13 19:29] VITALS: BP 140/83; BP 141/87; PULSE 70; PULSE 76; RESP 16; TEMP 36.3
[2023-11-13 19:39] VITALS: BMI 34.3
[2023-11-13] MEDS: Lactated Ringers 1,000 ML 50 ML IV (20:00)
[2023-11-13 20:16] LABS: Absolute Lymphocyte Count 1.62 X10^3/uL (0.83-4.51); Absolute Neutrophil Count 8.6 X10^3/uL (2.0-7.7); Basophil# 0.02 X10^3/uL; Basophil% 0.2 % (0-1); Eosinophil# 0.05 X10^3/uL; Eosinophils% 0.5 % (0-5); Hematocrit 33.5 % (37-47); Hemoglobin 11.5 g/dL (12.0-15.0); Lymphocyte # 1.62 X10^3/ul (0.83-4.51); Lymphocyte % 14.6 % (19-41); Mean Corp Hgb Conc 34.3 g/dL (32-36); Mean Corpuscular Hgb 29.8 pg (27.0-32.0); Mean Corpuscular Volume 86.8 fL (81-99); Mean Platelet Vol. 9.9 fl (6.2-12.0); Monocyte% 6.3 % (0-10); NRBC Flagged by Analyzer 0 % (0-5); Neutrophil % 77.6 % (47-70); Platelet Count 182 K/mm3 (150-450); RBC Distribution Width CV 13.2 % (11.6-14.6); RBC Distribution Width SD 41.1 fl (35.1-43.9); Red Blood Count 3.86 M/mm3 (4.2-5.4); White Blood Count 11.1 K/mm3 (4.4-11.0)
--- NOTE | 2023-11-13 20:28 | HP.PCM.OB_ITS ---
HPI - General General Date of Admission: 11/13/23 HPI Narrative DEWEY PEGUERO, is a 23 y/o @ 40 weeks 5 days who presents to L&D for IOL due to post dates Maternal Data Information MARIBEL Calculator Estimated Delivery Date Method Current WG Current Estimate 11/08/23 Ultrasound #1 40w 5d Other Estimates 11/02/23 LMP (Certain) 41w 4d PFSH PFSH Medical History (Updated 11/13/23 @ 20:13 by Nelly Bear) MRSA infection Anxiety UTI (urinary tract infection) GERD (gastroesophageal reflux disease) Toenail avulsion Hx: UTI (urinary tract infection) Home Medications ?Medication ?Instructions ?Recorded ?Last Taken ?Type PNV 153-FA 400 mcg-om3 35 mg-dha tab PO 03/12/23 Unknown History 25 mg-epa 5 mg-fish oil chew tablet omeprazole 20 mg capsule,delayed 20 mg PO DAILY GERD 03/12/23 Unknown History release Allergy/AdvReac Type Severity Reaction Status Date / Time metoclopramide (From Reglan) AdvReac Severe Shortness Verified 11/13/23 20:29 of breath Family History Mother Autoimmune gastrointestinal dysmotility Surgical History History of hip surgery Social History adopted: No household members: spouse current occupational status: employed current occupation: [employer] at [employer] current occupational exposures/hazards: No pets and animals: Yes (Not managing litterbox) pets and animals: cat(s) history of recent travel: Yes (ON LICENSE OF [facility], [place]) out of state: Yes out of country: No sexually active: Yes Smoking Status: Former smoker Tobacco: How many years used: 5 Electronic Cigarette Use: with nicotine alcohol intake: former year quit: 2021 details: occasional drinking/social substance use type: does not use well-balanced diet: about half the time caffeine: Yes Type: carbonated beverages Number of servings: 1 eating out: 4 or more times/week during the past year weight has: remained stable what type of physical activity do you participate in: none calixto/buddhist: Latter-Day seatbelt use: always do you feel safe at home: Yes 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 History 1 Elective abortions Hx Para 0 Spontaneous abortions Hx # Term Pregnancies Ectopic pregnancies Hx # Pregnancies Multiple births # of living children Visit Details Expected Delivery Route/Plan Labor Preferences- CB/BF classes: no labor support person: Gianni; sister Isatu labor intervention preferences: [] pain management options preferred:limited as long as possible but open epidural cut cord/dad catch: cord : yes PP control planned: discussed discussed possible routes of delivery and associated risks: [] special requests: [] Plans Covid status: [] Flu vaccine: [] Tdap vaccine: given Rhogam: na LARC form signed: yes Problem list reviewed and updated with the most current plan of care details and appropriate orders placed. Relevant counseling for the gestational age provided. Continue routine care and follow up unless otherwise noted in visit notes/problem list details OB Flowsheet Initial Weight: Not Recorded Date -?-?-?-?-?-?-?-?-?-?-?-?- EGA Weight BP Urine Prot -?-?-?-?-?-?-?-?-?-?-?-?- Glucose FHR FuHt Pres Dilation -?-?-?-?-?-?-?-?-?-?-?-?- Effaced St Visit Note 03/22/23 -?-?-?-?-?-?-?-?-?-?-?-?- 7w 0d 183 lb 6 oz 153 lb 6 oz 107/75 107/75 -?-?-?-?-?-?-?-?-?-?-?-?- 136 -?-?-?-?-?-?-?-?-?-?-?-?- kw-crl at 10.0 a nd not cons with dates. MARIBEL changed. kw-crl at 10.0 and not cons with dates. MARIBEL changed. Discussed NIPT and declines at this time. 04/19/23 -?-?-?-?-?-?-?-?-?-?-?-?- 11w 0d 151 lb 8 oz 126/80 Nega tive -?-?-?-?-?-?-?-?-?-?-?-?- Negative -?-?-?-?-?-?-?-?-?-?-?-?- kw-no vb/crampin g. formal US ordered with MFM. having low back pain due to history of hip surgery. Recommend getting records and possible ortho consult to confirm mode of delivery. to see physician next appt. NIPT and NOB labs today. handheld US verified FHR and movement today 04/22/23 -?-?-?-?-?-?-?-?-?-?-?-?- 11w 3d 150 lb 4 oz 112/71 Nega tive -?-?-?-?-?-?-?-?-?-?-?-?- Negative 160 -?-?-?-?-?-?-?-?-?-?-?-?- LC- no vb, havin g left sided cramping. desired FHR check. urine culture sent. to start on increased PO iron. 05/16/23 -?-?-?-?-?-?-?-?-?-?-?-?- 14w 6d 155 lb 2 oz 115/79 Nega tive -?-?-?-?-?-?-?-?-?-?-?-?- Negative 160 -?-?-?-?-?-?-?-?-?-?-?-?- kw- no cramping/ vb. anatomy scan scheduled. AFP declined. 06/13/23 -?-?-?-?-?-?-?-?-?-?-?-?- 18w 6d 164 lb 2 oz 124/83 Nega tive -?-?-?-?-?-?-?-?-?--?-?-?- Negative 152 -?-?-?-?-?-?-?-?-?-?-?-?- KW-no cramping/v b. possible flutters. Anatomy US today. Had UTI 2 weeks ago and now having yeast sx. Rx sent KW-no cramping/vb. possible flutters. Anatomy US today. Had UTI 2 weeks ago and now having yeast sx. Rx sent. requested records again for Hx hip surgery. Discussed importance of scheduling with physician next visit to review records and mode of delivery. 07/12/23 -?-?-?-?-?-?-?-?-?-?-?-?- 23w 0d 174 lb 106/75 Negative -?-?-?-?-?-?-?-?-?-?-?-?- Negative 159 -?-?-?-?-?-?-?-?-?-?-?-?- JV- pt states th at she did not get the medication that was discussed at last visit. looks like maybe insurance did not cover the 150 mg diflucan an looks as though they 200mg dose will be covered .she does not want to try the cream. red top tube collected. pt needs to ask ortho if ok to deliver vaginally and let them know she is having hip pain again. see attached op note. 08/09/23 -?-?-?-?-?-?-?-?-?-?-?-?- 27w 0d 184 lb 107/72 -?-?-?-?-?-?-?-?-?-?-?-?- 155 28 -?-?-?-?--?-?-?-?-?-?-?-?- Kw- no vb/lof/ct x. good fm. 28 week labs pending. checked with ortho and ok for vaginal delivery. 08/23/23 -?-?-?-?-?-?-?-?-?-?-?-?- 29w 0d 186 lb 112/78 -?-?-?-?-?-?-?-?-?-?-?-?- 155 29 -?-?-?-?-?-?-?-?-?-?-?-?- KW- No vb/lof/ct x. good fm. Tdap and LARC today. 09/05/23 -?-?-?-?--?-?-?-?-?-?-?-?- 30w 6d 189 lb 4 oz 106/74 Nega tive -?-?-?-?-?-?-?-?-?-?-?-?- Negative 145 30 -?-?-?-?-?-?-?-?-?-?-?-?- KW- no vb/lof/ct x. good fm 09/19/23 -?-?-?-?-?-?-?-?-?-?-?-?- 32w 6d 193 lb 6 oz 123/72 Nega tive -?-?-?-?-?-?-?-?-?-?-?-?- Negative 151 32 -?-?-?-?-?-?-?-?-?-?-?-?- MH-No VB LOF. Go od FM. Rpt CBC today for anemia 10/02/23 -?-?-?-?-?-?-?-?-?-?-?-?- 34w 5d 194 lb 106/71 -?-?-?-?-?-?-?-?-?-?-?-?- 155 34 Cephalic -?-?-?-?-?-?-?-?-?-?-?-?- KW- no vb/lof/ct x. good fm. no concerns today 10/11/23 -?-?-?-?-?-?-?-?-?-?-?-?- 36w 0d 196 lb 6 oz 117/80 Nega tive -?-?-?-?-?-?-?-?-?-?-?-?- Negative 137 36 Cephalic 0 -?-?-?-?-?-?-?-?-?-?-?-?- JV- no lof, vagi nal bleeding, or dec fm. labor precautions discussed. GBS pos. 10/16/23 -?-?-?-?-?-?-?-?-?-?-?-?- 36w 5d 198 lb 117/83 -?-?-?-?-?-?-?-?-?-?-?-?- 126 36 Cephalic -?-?-?-?-?-?-?-?-?-?-?-?- kw- no vb/lof/ct x. good fm. declines vag exam. 10/23/23 -?-?-?-?-?-?-?-?-?-?-?-?- 37w 5d 202 lb 121/81 Negative -?-?-?-?-?-?-?-?-?-?-?-?- Negative 130 37 Cephalic 1 .5 -?-?-?-?-?-?-?-?-?-?-?-?- 60 SM- novb lof good fm no reuglar ctx 10/31/23 -?-?-?-?-?-?-?-?-?-?-?-?- 38w 6d 204 lb 137/83 Negative -?-?-?-?-?-?-?-?-?-?-?-?- Negative 145 38 Cephalic 1 .5 -?-?-?-?-?-?-?-?-?-?-?-?- SM- no vb lof go od fm no regular ctx 11/08/23 -?-?-?-?-?-?-?-?-?-?-?-?- 40w 0d 204 lb 123/81 -?-?-?-?-?-?-?-?-?-?-?-?- 145 39 Cephalic 1.5 -?-?-?-?-?-?-?-?-?-?-?-?- SM- no vb lof go od fm no reuglar ctx SM- no vb lof good fm no reu glar ctx discussed IOL either cytotec or FB 11/13/23 -?-?-?-?-?-?-?-?-?-?-?-?- 40w 5d 204 lb 8 oz 121/82 Nega tive -?-?-?-?-?-?-?-?-?-?-?-?- Negative 141 38 Cephalic 1 .5 -?-?-?-?-?-?-?-?-?-?-?-?- 80 JV- sett ing up IOL for tonight. ROS Constitutional Constitutional: Denies change in weight, fatigue, fever(s), headache(s), poor appetite or weakness Eyes Eyes: Denies blurry vision, change in vision, seeing flashes or spots in vision ENT HEENT: Denies dizziness, headache(s), loss taste/smell or sore throat Cardiovascular Cardiovascular: Denies chest pain, dizziness, dyspnea, irregular heart rhythm, leg edema, palpitations, rapid heart rate or vomiting Respiratory/Chest Respiratory/Chest: Denies chest tightness, cough, dyspnea or breast pain Gastrointestinal Gastrointestinal: Denies abdominal pain, anorexia, constipation, cramping, diarrhea, hemorrhoids, vomiting or weight changes Genitourinary Genitourinary: Denies dysuria, flank pain, genital lesions, genital pain, urinary frequency or urinary urgency Musculoskeletal Musculoskeletal: Denies back pain, difficulty walking, joint pain, limited range of motion, muscle cramps or numbness Integumentary Integumentary: Denies lesions or unusual bruising Neurologic Neurologic: Denies abnormal movements, abnormal speech, dizziness, numbness, seizure-like activity or syncope Psychiatric Psychiatric: Denies anxiety, behavioral changes, change in appetite, change in libido, cognitive impairment, confusion, depression, difficulty concentrating, hallucinations or suicidal thoughts Endocrine Endocrinology: Denies excessive sweating, polydipsia or polyuria Hematologic/Lymphatic Hematologic/Lymphatic: Denies easy bleeding, easy bruising or lymphadenopathy Allergic/Immunologic Allergic/Immunologic: Denies itchy eyes, lip swelling, seasonal rhinorrhea, rhinitis, throat swelling, tongue swelling, eczemia, wheezing or asthma Vital Signs Vital Signs Vital Signs: 11/13/23 19:29 11/13/23 19:29 11/13/23 19:29 Temperature Temperature Source Pulse Rate 70 Respiratory Rate Blood Pressure 140/83 H 141/87 H BP Systolic 140 141 BP Diastolic 83 87 11/13/23 19:29 11/13/23 19:29 11/13/23 19:29 Temperature Temperature Source Temporal Pulse Rate 76 Respiratory Rate 16 Blood Pressure BP Systolic BP Diastolic 11/13/23 19:29 Temperature 97.4 F L Temperature Source Pulse Rate Respiratory Rate Blood Pressure BP Systolic BP Diastolic Weight Weight: 206 lb 9.6 oz Body Mass Index (BMI) 34.3 Physical Exam Const alert, oriented x3, no apparent distress and healthy appearing General Appearance: cooperative; Negative for anxious HEENT normocephalic Face and Sinus: normal facial exam Eyes EOMs intact bilaterally and no scleral icterus General Eye: normal appearance of both eyes Neck full ROM and supple Lymph Lymphatic: no lymphadenopathy noted Chest Chest: abnormal inspection of the chest Resp normal respiratory effort Effort and Inspection: able to speak in complete sentences Cardio regular rate GI soft to palpation and non-tender Inspection: gravid Palpation: soft; Negative for tender external exam normal Amniotic Fluid: ROM+plus Back/Spine no CVA tenderness Extremity normal to inspection, full ROM and no clubbing, cyanosis or edema General Extremity: Negative for calf tenderness or edema Skin Lesions: no lesions Rashes: no rashes Psych mental status grossly normal Labs Labs Labs: Blood Type O POSITIVE Antibody Screen NEGATIVE Hct 33.5 % (37-47) L Hgb 11.5 g/dL (12.0-15.0) L Syphilis Total Ab Non-reactive Rubella IgG Antibody Reactive (Nonreactive) Hep Bs Antigen Non-Reactive (Nonreactive) Hepatitis C Antibody Non-Reactive (Nonreactive) Chlamydia DNA (OPHELIA) Negative (Negative) N.gonorrhoeae DNA (OPHELIA) Negative (Negative) HIV 1&2 Antibody Non-Reactive (Nonreactive) Glucose 1 Hr 50 gm 117 mg/dL (70-140) Assessment & Plan (1) GBS (group B streptococcus) UTI complicating : QUALIFIERS: Trimester: third trimester Qualified Code(s): O23.43 - Unspecified infection of urinary tract in , third trimester; B95.1 - Streptococcus, group B, as the cause of diseases classified elsewhere COMMENT: low growth, not treated but will need treatment in labor (2) Anemia affecting : QUALIFIERS: Trimester: third trimester Qualified Code(s): O99.013 - Anemia complicating , third trimester COMMENT: PO iron. recheck in 4 weeks:normal CBC 09/18 (3) Anxiety: COMMENT: stable (4) Migraine headache: COMMENT: left side only (5) Occipital neuralgia of left side: COMMENT: sees Dr May- Neurologist (6) Supervision of high-risk : QUALIFIERS: Trimester: third trimester Qualified Code(s): O09.93 - Supervision of high risk , unspecified, third trimester COMMENT: PRR, , MARIBEL 11/02/23, boy Javon (7) : QUALIFIERS: Weeks of gestation: 40 weeks Qualified Code(s): Z3A.40 - 40 weeks gestation of COMMENT: nl anatomy, discussed genetic & carrier testing (8) History of non-nicotine vaping: COMMENT: quit 03/08/23 (9) History of hip surgery: COMMENT: 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 Pain management: plans epidural. GBS positive- start pcn after 4 cm dilation . Management of any complications: none I have reviewed the PFSH and made any clinically relevant updates.
[2023-11-13 20:53] LABS: Syphilis Antibodies Non-reactive
[2023-11-13] MEDS: miSOPROStol 25 MCG TABLET VAGINAL (21:00)
[2023-11-13 21:04] VITALS: BP 162/82; PULSE 75
[2023-11-13 21:05] VITALS: BP 141/75; PULSE 72; RESP 16; TEMP 36.6
[2023-11-14] VITALS (75 sets, daily range): BP systolic 105–164; BP diastolic 52–115; PULSE 62–115; RESP 16–20; TEMP 36.1–37.5; O2SAT 93–100
[2023-11-14] MEDS: miSOPROStol 25 MCG TABLET VAGINAL (01:26)
[2023-11-14] MEDS: LACTATED RINGERS 500 ML 999 ML IV (04:07)
[2023-11-14] MEDS: Penicillin G Pot 5,000,000 UNITS in 0.9% Normal Saline (100mL MB+) 100 ML 150 UNITS IV (04:18)
[2023-11-14 04:27] LABS: ROM Internal Control Test YES-OK TO RESULT pt. (Internal QC); ROM Patient Test POSITIVE (Negative); Record Kit Lot#, ROM+ K1866
[2023-11-14] MEDS: fentaNYL-bupivacaine (epidural) 100 ML BAG EPIDURAL ×3 (05:31→15:15)
--- NOTE | 2023-11-14 07:55 | PCM.PN.BLA ---
Progress Note 6 cm dilated, srom now mec fluid but cat I tracing, epidural comfortbale. exp mangement no pitocin at present due to cervicla change.
[2023-11-14] MEDS: Penicillin G 3,000,000 Units 50 ML 100 UNITS IV ×2 (08:24→12:11)
[2023-11-14] MEDS: Lactated Ringers 1,000 ML 200 ML IV ×2 (08:24→15:14)
[2023-11-14] MEDS: Oxytocin 15 Units/NS 250ml 15 UNITS/250 ML IV.SOLN 2 UNITS IV (10:27)
[2023-11-14] MEDS: Oxytocin 15 Units/NS 250ml 15 UNITS/250 ML IV.SOLN 83 UNITS IV (17:10)
--- NOTE | 2023-11-14 17:14 | OP.PCM_ITS ---
Assessment & Plan (1) GBS (group B streptococcus) UTI complicating : QUALIFIERS: Trimester: third trimester Qualified Code(s): O23.43 - Unspecified infection of urinary tract in , third trimester; B95.1 - Streptococcus, group B, as the cause of diseases classified elsewhere COMMENT: low growth, not treated but will need treatment in labor (2) Anemia affecting : QUALIFIERS: Trimester: third trimester Qualified Code(s): O99.013 - Anemia complicating , third trimester COMMENT: PO iron. recheck in 4 weeks:normal CBC 09/18 (3) Anxiety: COMMENT: stable (4) Migraine headache: COMMENT: left side only (5) Occipital neuralgia of left side: COMMENT: sees Dr May- Neurologist (6) Supervision of high-risk : QUALIFIERS: Trimester: third trimester Qualified Code(s): O09.93 - Supervision of high risk , unspecified, third trimester COMMENT: PRR, , MARIBEL 11/02/23, boy Javon (7) : QUALIFIERS: Weeks of gestation: 40 weeks Qualified Code(s): Z3A.40 - 40 weeks gestation of COMMENT: nl anatomy, discussed genetic & carrier testing (8) History of non-nicotine vaping: COMMENT: quit 03/08/23 (9) GERD (gastroesophageal reflux disease): (10) History of hip surgery: COMMENT: 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 cleared by ortho for vaginal delivery (11) Vaginal delivery: COMMENT: SM IOL postdates boy Girish Maternal Data Information MARIBEL Calculator Estimated Delivery Date Method Current WG Current Estimate 11/08/23 Ultrasound #1 40w 6d Other Estimates 11/02/23 LMP (Certain) 41w 5d Vaginal Delivery Operative Information Date of Procedure: 11/14/23 Pre-Operative Diagnosis: see a/p diagnoses Post-Operative Diagnosis: same Surgery / Procedure Performed: Spontaneous Vaginal Delivery Type of Anesthesia: Epidural Special Medications: none Estimated Blood Loss: 300 Fluids Replaced: crystalloid Findings Description of Procedure: Patient began pushing and delivered the head in the JEREMY presentation. The head was delivered atraumatically . The anterior and posterior shoulders delivered without complication followed by the rest of the infant and the was placed on the maternal abdomen. Delayed cord clamping was employed for approximately 60 seconds. Cord was clamped and cut and gentle traction was applied to the cord and the placenta delivered spontaneously immediately following it was noted to be intact with three-vessel cord. The perineum and vagina were inspected and noted to have a second degree perineal laceration which was repaired in the usual fashion with 3-0 vicryl rapide.. EBL was 300. Patient and tolerated delivery well. Amniotic Fluid Description: Thick meconium Placental Delivery Description: Spontaneous Placenta Disposition: [facility] Cord Vessel Description: 3 Vessels Cord Entanglement: None Delayed Cord Clamping: Yes Post Vaginal Delivery Medications Given After Delivery: IV Pitocin Episiotomy Description: None Complication Complications: None Procedures Urinary/Genital 52xxx-59xxx: [id number] Vaginal Delivery [facility]
--- NOTE | 2023-11-14 19:26 | DCINST_ITS ---
Discharge Instructions Diet Discharge Diet: No restrictions Activity Discharge Activity: Return to Normal Activity, May Not Drive (while taking narcotic pain medications.) and May Shower May resume sexual activity in: 4-6 weeks Dressing / Incision Call your doctor if your incision/area has: Continuous Slow Oozing, Sudden Increased Bleeding, Increased Pain/ Swelling, Increased Redness and Foul Smelling Discharge Follow Up Care Please Follow Up With: Indira Pérez MD When: Call [phone] to make an appointment with your doctor in 6 weeks. If you had elevated blood pressure or 4th degree laceration, you will need to be seen in 2 weeks. Test Results: Test results from this visit will be discussed in further detail at your follow- up appointment, if applicable. Discharge Plan Admission Admit Date/Time: 11/13/23 19:13 Attending Provider: Vy Baker Primary Care Provider: Care Physician,Marta Primary Discharge Orders/Prescriptions Prescriptions: No Action omeprazole 20 mg capsule,delayed release(DR/EC) 20 mg PO DAILY PNV no.[id number] 400 mcg-35 mg- 25 mg-5 mg tablet,chewable PO Referrals / Follow Up: Care Physician,No Primary [Primary Care Provider] - Disposition Disposition (needs filled in before D/C Order can be placed): Home, Self Care
[2023-11-15] VITALS: BP 142/89; PULSE 105; RESP 16; TEMP 36.4; O2SAT 98
[2023-11-15] MEDS: Naproxen 500 MG Tablet PO ×2 (00:19→10:07)
[2023-11-15] MEDS: 0.9% Saline Lock 10 ML Syringe IV (00:19)
[2023-11-15 03:32] VITALS: BP 121/79; PULSE 84; RESP 16; TEMP 36.1; O2SAT 100
--- NOTE | 2023-11-15 07:26 | PCM.PN.OB ---
Subjective Subjective Patient doing well without complaints. Tolerating PO. Ambulating and voiding without difficulty. feeding well. Denies chest pain, shortness of breath, calf pain/swelling, fevers, chills, lightheadedness. Objective Data Objective Data Vital Signs: Vital Signs Temp Pulse Resp BP Pulse Ox O2 Del Method 97.0 F L 84 16 121/79 H 100 Room Air 11/15/23 03:32 11/15/23 03:32 11/15/23 03:32 11/15/23 03:32 11/15/23 03:32 11/15/23 03:32 Oxygen Delivery Method Room Air Weight: 206 lb 9.6 oz Body Mass Index (BMI) 34.3 Intake & Output: Intake and Output for Last 24 Hours 11/13/23 11/14/23 11/15/23 23:59 23:59 23:59 Intake Total 3722.27 / 3722.27 Output Total 3000 / 3300 300 / 300 Balance 722.27 / 422.27 -300 / -300 Lab / Micro Data 11/13/23 20:00 ROS Constitutional Constitutional: Reports systems reviewed and no addt'l complaints, except as documented Cardiovascular Cardiovascular: Reports systems reviewed and no addt'l complaints, except as documented Respiratory/Chest Respiratory/Chest: Reports systems reviewed and no addt'l complaints, except as documented Gastrointestinal Gastrointestinal: Reports systems reviewed and no addt'l complaints, except as documented Physical Exam Const alert, oriented x3 and no apparent distress HEENT Head and Scalp: atraumatic Resp normal respiratory effort GI soft to palpation and non-tender Bimanual Exam - Vag & Uterus: uterus non-tender Uterus Palpation: uterus fundus firm (below Umbilicus) Assessment & Plan (1) Vaginal delivery: COMMENT: SM IOL postdates boy Girish PLAN: Plan s/p PPD # 1 1. routine post delivery care 2. breast feeding- support given 3. rh positive 4. rubella immune
[2023-11-15 07:50] VITALS: BP 103/64; PULSE 84; RESP 16; TEMP 36.6; O2SAT 98
[2023-11-15 11:25] VITALS: BP 118/79; PULSE 95; RESP 16; TEMP 36.4; O2SAT 99
--- NOTE | 2023-11-15 14:45 | CASEMGMT ---
Social Work Assessment Labor and Delivery Unit Patient Address: [facility] [address] [place] [id number] Phone number: [phone] Date of Referral: 11/13/23 Time of Referral:? 2026 Referred By: Dr. Baker Date of Intervention: ??11/14/23 Time of Intervention:? 1300 Reason for Referral:? anxiety Sw completed chart review and acknowledges social work consult due to maternal mental health history. Sw presented to bedside and introduced self to mother of baby (LJ Henry) and explained reason for sw involvement. Sw completed psychosocial assessment. History obtained from: medical records, MOB Household composition: LISSET states that currently residing in the home is herself, FOB and baby when ready for discharge. MOB denies any issues or concerns with current housing. Patient's parent/guardian status:?LISSET states that she and FOMadi met while working together at [employer]. They have now been together for 6 years. LISSET denies domestic violence or intimate partner violence, she reports that LEX is her person. Medical History: ?LISSET is 23 year old female who is 1, para 0- now 1 following labor and delivery of . LISSET received routine care during with [facility]. LISSET presented to hospital for an induction of labor due to post dates and delivered baby via vaginal delivery at 40 weeks gestation on 11/14/23. Baby boy, named Girish Alejandro, was born weighing 7lb 13oz with apgars of 8 and 9 at one and five minutes of life, respectfully. MOB states that breast feeding is going well and baby will be followed by Dr. Paredes for pediatrics. Educational Status:? Both parents graduated from high school. LEX has some college credits, but has not graduated. LISSET denies any issues with reading, learning or comprehension. 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 Infant Supplies:?? Parents have obtained all necessary baby supplies, including: car seat, safe sleep space, clothes, diapers and wipes. Childcare/Caregiver(s):? LISSET is going to be a stay at home mom and will be the primary childcare provider for baby along with FOB when he is not working. Transportation:?? Both parents have their drivers license and reliable means of transportation. No barriers at this time. Programs/Agencies Involved: ??Parents are not connected to any community resources that assist them financially. LISSET is connected to a provider in [facility] who was prescribing her psychotropic medications. ? Children Services/Legal Issues:??? No history of children services involvement. NO issues or concerns warranting referral to be made at this time. Behavioral Health Issues: ??Mental Health History:??MOB states that LEX does not have any mental health diagnoses. MOB states that she has anxiety. MOB reports that her anxiety stems from underlying medical conditions that she has. MOB reports that she has her medical needs and mental health under control, especially throughout . ? Substance Use History:??MOB denies substance use other than vaping tobacco at beginning of . Family History:?MOB states that her mother is a functioning alcoholic. MOB states that her mom will not be a childcare provider to baby. Sw educated MOB on recognizing genetic disposition and utilizing healthy and appropriate coping skills during this period and not seeking comfort from drugs or alcohol when she is overwhelmed or frustrated. MOB expressed understanding. ? Drug Screens: ??No drug screens observed in chart review. Family/Social Stressors:? MOB denies any issues, concerns or stressors at this time. Support Systems: MOB identifies that FOB and paternal grandparents are their biggest supports at this time. Depression/Shaken Baby/Safe Sleeping:? Sw educated MOB at length regarding signs and symptoms of baby blues and mood and anxiety disorders to be on the lookout for during this period. MOB states that she is aware of what to lookout for. MOB states that she is comfortable having conversations with FOB and other natural supports if she feels as though she is struggling. Sw and MOB brainstormed ways that LEX is able to be empathetic and supportive during this time. Sw educated MOB on shaken baby prevention and ABCs of safe sleep. MOB expressed understanding. ASSESSMENT:? MOB and baby are admitted following labor and delivery. MOB with history of anxiety and previously prescribed BuSpar- but stopped during . MOB denies any mental health struggles or concerns at this time. MOB has natural supports in place and has obtained all necessary baby supplies. MOB observed providing loving and appropriate hands on care of . MOB made and maintained eye contact and participated openly in completion of psychosocial assessment. Literature on safe sleep, shaken baby prevention, Help [place] Grow, county resources and mood and anxiety disorders provided to MOB for her review. PLAN:? MOB and baby to be discharged when medically ready. ?No other services requested or indicated. Cachorro Costello, RELATIONSHIP ADVISOR, AIRCRAFT ENGINE MECHANIC SUPERVISOR
[2023-11-15 17:26] VITALS: BP 124/78; PULSE 78; RESP 16; TEMP 36.6; O2SAT 98
== END 2023-11-15 18:55 | disposition home or self-care (01) | DRG 806 ==
PROVIDERS: Admitting Provider Obstetrics & Gynecology; Referring Provider Obstetrics & Gynecology; Visit Provider Obstetrics & Gynecology
DX: O48.0 Post-term pregnancy (principal); Z37.0 Single live birth; O99.354 Diseases of the nervous system complicating childbirth; M54.81 Occipital neuralgia; G43.909 Migraine, unspecified, not intractable, without status migrainosus; F41.9 Anxiety disorder, unspecified; K21.9 Gastro-esophageal reflux disease without esophagitis; O77.0 Labor and delivery complicated by meconium in amniotic fluid; B95.1 Streptococcus, group B, as the cause of diseases classified elsewhere; O99.344 Other mental disorders complicating childbirth; Z87.891 Personal history of nicotine dependence; O70.1 Second degree perineal laceration during delivery; O99.62 Diseases of the digestive system complicating childbirth; Z3A.40 40 weeks gestation of pregnancy; Z86.14 Personal history of Methicillin resistant Staphylococcus aureus infection; Z87.440 Personal history of urinary (tract) infections; O99.02 Anemia complicating childbirth; O99.893 Other specified diseases and conditions complicating puerperium
CPT/HCPCS: 59025; 59050; 76815; 84112; 85025; 86780; 86850; 86900; 86901; 99221; J7120; A4216; G0378

== ENCOUNTER 2023-12-13 11:03 | Emergency (ER) | payer BC, SELFPAY ==
[2023-12-13 11:04] VITALS: BP 124/85; PULSE 96; RESP 18; RESP 20; TEMP 36.6; O2SAT 98; BMI 32.0
--- NOTE | 2023-12-13 11:04 | CT_ITS ---
STUDY: CT BRAIN WITHOUT CONTRAST REASON FOR EXAM: Female, 23 years old. New onset seizures, multiple RADIATION DOSAGE (If Supplied By Facility): CTDIvol = ( 44.99 ) mGy, DLP = ( 812.98 ) mGycm TECHNIQUE: Transaxial CT imaging of the brain was performed without administration of intravenous contrast material. Individualized dose optimization techniques were used for this CT. COMPARISON: No relevant priors. FINDINGS: Normal soft tissue structures. Normal calvarium. Normal size ventricles and extra-axial spaces for the patient''s age. Normal white matter tracts of the cerebral hemispheres. Normal basal ganglia and thalami. Normal brainstem. Normal cerebellum. There is no intracranial hemorrhage. There are no findings of an acute ischemic infarction. Mucous retention cyst/polyp in the right maxillary and ethmoid sinus, there is occlusion of the right ostiomeatal complex CT/Brain/Head without Contrast IMPRESSION: No acute abnormalities Conclusion of the right ostiomeatal complex due to mucous retention cyst/polyp in the right maxillary and ethmoid sinuses Electronically Signed: Trey Hlolis MD at 11:34 EDT ,
--- NOTE | 2023-12-13 11:05 | EKG12_ITS ---
Test Reason : post code Blood Pressure : / mmHG Vent. Rate : 106 BPM Atrial Rate : 106 BPM P-R Int : 140 ms QRS Dur : 102 ms QT Int : 362 ms P-R-T Axes : 051 048 058 degrees QTc Int : [address] CHANGES ABNORMAL ECG Confirmed by Kamran Kramer ([id number]), editor map FLAVIO VU ([id number]) on 12/16/2023 11:15:47 AM Referred By: Confirmed By:Kamran Kramer
--- NOTE | 2023-12-13 11:19 | EDS_ITS ---
HPI History of Present Illness Chief Complaint: Seizure Detail of Chief Complaint: Seizure at 9:00, 10:00 and in the emergency department approximately 11 AM. Informant: patient and EMS Onset/Context/Timing Onset: Today (New onset seizures) Context: Sudden Onset Timing: Intermittent Quality: Generalized tonic-clonic seizures Location: 2 at home and 1 in the emergency department Current Severity: Unable to determine Maximum Severity: Unable to determine Worsened by: Unknown Relieved by: Not applicable Narrative Narrative: Patient is a 23-year-old female who delivered vaginally November [address] Johnny Solitario. She had a UTI that complicated , group B streptococcus. Patient is sluggish at this time. She arrived pale and ashen in appearance. She had a generalized tonic-clonic seizure. Ativan was ordered since this was her third seizure within 2 hours. Seizure abated on its own. 60 mg/kg of Keppra was ordered. Patient states she has had a headache for the past week. No known family history of subarachnoid hemorrhage or aneurysm. Mother had an TX at the age of 40. Review of prior records EKG has history of migraine headaches, occipital neuralgia, none nicotine vaping, GERD and anemia affecting . Patient does endorse shortness of breath. She denies chest discomfort. Denies back pain. Prior similar symptoms: No Recent Illness/Hospitalization: Yes (November 13, 2023 for vaginal delivery) [facility] Medical History MRSA infection Anxiety UTI (urinary tract infection) GERD (gastroesophageal reflux disease) Toenail avulsion Hx: UTI (urinary tract infection) Home Medications ?Medication ?Instructions ?Recorded ?Last Taken ?Type PNV 153-FA 400 mcg-om3 35 mg-dha tab PO 03/12/23 Unknown History 25 mg-epa 5 mg-fish oil chew tablet omeprazole 20 mg capsule,delayed 20 mg PO DAILY GERD 03/12/23 Unknown History release naproxen 500 mg tablet 500 mg PO BID PRN PRN Pain #30 tabs 11/15/23 Unknown Rx naproxen 500 mg tablet 500 mg PO BID PRN PRN Pain #30 tabs 11/15/23 Unknown Rx Allergy/AdvReac Type Severity Reaction Status Date / Time metoclopramide (From Reglan) AdvReac Severe Shortness Verified 11/13/23 20:29 of breath Family History Mother Autoimmune gastrointestinal dysmotility Surgical History History of hip surgery Social History adopted: No household members: spouse current occupational status: employed 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 [employer] current occupational exposures/hazards: No pets and animals: Yes (Not managing litterbox) pets and animals: cat(s) history of recent travel: Yes ([facility], [place]) out of state: Yes out of country: No sexually active: Yes Smoking Status: Former smoker Tobacco: How many years used: 5 Electronic Cigarette Use: with nicotine alcohol intake: former year quit: 2021 details: occasional drinking/social substance use type: does not use well-balanced diet: about half the time caffeine: Yes Type: carbonated beverages Number of servings: 1 eating out: 4 or more times/week during the past year weight has: remained stable what type of physical activity do you participate in: none calixto/bahai: Christianity seatbelt use: always do you feel safe at home: Yes 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 ROS SHE ED Review of Systems ROS Unobtainable: due to mental status Constitutional Constitutional ED: Denies chills or fever(s) Eyes Eyes: Denies blurry vision or change in vision ENT ENT ED: Denies rhinorrhea or sore throat Cardiovascular Cardiovascular: Denies chest pain, orthopnea, palpitations or paroxysmal nocturnal dyspnea Respiratory/Chest Respiratory/Chest: Reports dyspnea; Denies orthopnea or paroxysmal nocturnal dyspnea Neurologic Neurologic: Reports headache(s) Hematologic/Lymphatic Hematologic/Lymphatic: Denies easy bleeding or easy bruising EXAM Physical Exam Const Vital Signs: 12/13/23 11:04 12/13/23 11:04 12/13/23 11:33 Temperature 98 F 98 F Temperature Source Temporal Temporal Pulse Rate 96 96 95 Respiratory Rate 18 20 H 14 Blood Pressure 124/85 H 124/85 H 126/82 H Blood Pressure Mean 98 98 96 Pulse Ox 98 98 96 Oxygen Delivery Method Room Air Nasal Cannula Oxygen Flow Rate (L/min) 4 12/13/23 12:03 Temperature Temperature Source Pulse Rate 112 H Respiratory Rate 16 Blood Pressure 164/78 H Blood Pressure Mean 106 Pulse Ox 98 Oxygen Delivery Method Room Air Oxygen Flow Rate (L/min) Positive well nourished and well developed Constitutional Narrative: Patient is pale ashen in appearance with cyanotic appearing lips. Patient had a witnessed generalized tonic-clonic seizure in the department. She was not on the monitor. Do not know rhythm prior to event. Rhythm strips from squad revealed frequent PVCs with no evidence of sustained or nonsustained V. tach. General Appearance ED: well developed and pallor; Negative for NAD HEENT normocephalic, atraumatic and cyanosis of lips/distal nose Eyes PERRL and EOMs intact bilaterally General Eye ED: Yes pale conjunctiva; Negative for scleral icterus Neck full ROM, no lymphadenopathy, supple and no JVD Resp Resp Narrative: Patient has crackles at both bases. Breath sounds are diminished bilaterally. This raises concern for aspiration. Cardio regular rate, S1 normal heart sound, S2 normal heart sound and no murmurs GI non-tender, non-distended and no masses Back/Spine no CVA tenderness Extremity Extremity Narrative: There is no clubbing. There is acrocyanosis. Question mild edema of the feet. Neuro No oriented x3, CN's II-XII intact bilaterally and no sensory deficits noted Sensorium / Orientation: Negative for alert Speech: speech normal Skin General Skin Exam: pallor; Negative for jaundice Lesions: no lesions Rashes: no rashes MDM MDM MDM Narrative Medical decision making narrative: Patient's had multiple seizures. Since she is will need to obtain blood pressure because of concern for preeclampsia, subarachnoid he morrhage/intracranial bleed. Since she has crackles at both bases need to entertain possibility of aspiration. Will obtain chest x-ray. Appropriate blood work was obtained including uric acid and UA since blood pressure initially was not known. She is she has had 3 seizures she was loaded with 60 mg/kg of Keppra. EKG reveals acute subendocardial injury pattern with ST depression in leads II, III and aVF. ST depression in leads I V3 through V6 and ST elevation in aVR. CT of the head without contrast was reviewed by me. There is no obvious intracranial bleed i.e. subarachnoid hemorrhage, intraparenchymal bleed or subdural hematoma. Spoke with Shaniqua cortez for [facility] transfer line. Also spoke to the critical care team for transport, neurointensivist Dr. Macedo and Dr. Keegan Osuna cardiology. Dr. Macedo requested a magnesium level which was added. In light of the EKG changes troponin level was obtained. I received a call at 1151 from the neurointensive care resident at [facility]. After discussion with their team they recommended obtaining a CTA. Since there is no evidence of CHF on the chest x-ray and the fact that she is requiring 4 L of oxygen will obtain CT of the chest to evaluate for pulmonary embolus. I was called to see patient immediately. She was seizing. Monitor revealed wide-complex tachycardia rate of 250. She deteriorated to torsades de point. She lost her pulses at this point. She has received a total of 6 g of magnesium IV push. She was started on magnesium drip of 2 g/h. Spoke with head wrestling coach for MICU at [facility] agrees with amiodarone bolus and drip. Contacted pharmacy to have this mixed and brought to the emergency department. Once rhythm stabilized and the patient had acceptable blood pressure she was orotracheally intubated using glide scope. She received 20 mg etomidate followed by 75 mg succinylcholine. She was successfully elevated on first attempt. There is appropriate color change of capnometer. There is breath sounds noted bilaterally. Chest x-ray reveals the tube to be just above the brent. History & Record Review Discussion w/independent historian: EMS personnel, Patient and Family Lab Data Attestation: I reviewed the patient's lab results. Lab results narrative: Labs are consistent with preeclampsia. First troponin is elevated at 707. This raises concern for cardiomyopathy Labs: Laboratory Results - last 24 hr 12/13/23 12/13/23 12/13/23 11:29 11:30 12:30 WBC 12.6 H RBC 4.45 Hgb 12.9 Hct 39.7 MCV 89.2 MCH 29.0 MCHC 32.5 RDW Std Deviation 37.9 RDW Coeff of Emilio 11.8 Plt Count 196 MPV 10.0 Immature Gran % (Auto) 0.500 Neut % (Auto) 83.0 H Lymph % (Auto) 11.4 L Rice % (Auto) 4.4 Eos % (Auto) 0.4 Baso % (Auto) 0.3 Absolute Neuts (auto) 10.4 H Absolute Lymphs (auto) 1.43 Nucleated RBC % 0 PT 13.6 INR 1.0 APTT 24.2 Sodium 139 Potassium 3.2 L Chloride 107 Carbon Dioxide 21.0 Anion Gap 11 BUN 10 Creatinine 0.69 Estim Creat Clear Calc 138.37 Est GFR (MDRD) Af Amer 136 Est GFR (MDRD) Non-Af 112 BUN/Creatinine Ratio 14.6 Glucose 135 H Uric Acid 4.5 Calcium 8.5 Magnesium 1.5 L Total Bilirubin 0.30 Direct Bilirubin 0.17 AST 128 H ALT 120 H Alkaline Phosphatase 201 H Troponin I High Sens 707 H* Total Protein 6.6 Albumin 3.0 L Globulin 3.6 Urine Color Yellow Urine Clarity Clear Urine pH 6.5 Ur Specific [place] 1.015 Urine Protein 500 H Urine Glucose (UA) Normal Urine Ketones Negative Urine Occult Blood 50 H Urine Nitrite Negative Urine Bilirubin Negative Urine Urobilinogen Normal Ur Leukocyte Esterase Negative Ur Drug Screen Comment POC Glucose 113 H Radiography Chest X-Ray - ED: 1 View and Read by ED Physician (No acute abnormalities. Cardiac silhouette size normal. Lung parenchyma normal. Hilum is normal. Oss ea structures unremarkable.) Diagnostic Testing: Clinical Impression(s) from Imaging Studies Brain CT 12/13/23 11:04 IMPRESSION: No acute abnormalities Conclusion of the right ostiomeatal complex due to mucous retention cyst/polyp in the right maxillary and ethmoid sinuses Electronically Signed: Trey Hollis MD at 11:34 EDT , Chest X-Ray 12/13/23 11:31 IMPRESSION: Normal x-ray examination of the chest. Electronically Signed: Ras Escudero MD at 11:52 EDT , EKG Initial EKG: Attestation: I personally reviewed and interpreted this EKG as follows: Interpretation: Sinus Rhythm (Sinus rhythm with marked ST abnormality. EKG interpretation documented under the MDM portion of the EMR.) Follow-up EKG: Attestation: I personally reviewed and interpreted this EKG as follows: Interpretation: Sinus Rhythm (Sinus rhythm. Her ST depression is improved in the inferior leads. She still has depression in the lateral leads. There is still ST elevation in aVR.) Procedures Other Procedures Procedure(s): 1. CPR performed by physician 2. Treatment for V. tach and torsades de point 3. Orotracheal intubation, bag valve ventilation prior to intubation. Documentation of note in MDM portion of the EMR. 4. Right internal jugular line was placed. Consent was presumed. Patient prepped draped sterile manner. All participants in room were capped and wearing mask. The right internal jugular line was successfully cannulated first attempt on the way in. Using Seldinger technique 7.5 Indonesian triple-lumen was placed. Blood was aspirated of all 3 ports. Chest x-ray was obtained confirms placement to be in the right atrium. There is no evidence of pneumothorax. This was placed because of the amount of drips patient is presently on and because patient needs 20 mEq/h of potassium to correct her hypokalemia. Critical Care Time Critical Care Time: Yes Critical care time (excluding procedures): 75-104 minutes (78), Including time spent: (History, physical, documentation, independent interpretation of laboratory results), Discussing w/Patient &/or Family/Street Commissioner, Discussing w/Consultants (Shaniqua nurse for transfer line at [facility], neurointensivist, odd job laborer, radiologist), Arranging Admission or Transfer, Performing Direct Patient Care at Bedside and - (Dr. Indira Pérez who delivered Krys child November 12. Reviewed her records and detailed code sheet and MDM portion of the EMR) Discharge Plan Triage Chief Complaint: Seizure ED Provider: Gurpreet Aviles Dx/Rx/DC Orders Clinical Impression: Status epilepticus, Acute hypoxemic respiratory failure, Abnormal electrocardiogram finding without diagnosis, Torsades de pointes, Ventricular tachycardia, sustained, Pre-eclampsia, , cardiomyopathy, Non-ST elevation myocardial infarction with complication, Acute hypokalemia Prescriptions: No Action omeprazole 20 mg capsule,delayed release(DR/EC) 20 mg PO DAILY PNV no.[id number] 400 mcg-35 mg- 25 mg-5 mg tablet,chewable PO naproxen 500 mg tablet 500 mg PO BID PRN PRN (Reason: Pain) Qty: 30 1RF naproxen 500 mg tablet 500 mg PO BID PRN PRN (Reason: Pain) Qty: 30 1RF Primary Care Provider: Care Physician,No Primary Referrals: Care Physician,No Primary [Primary Care Provider] - Print Language: Montserratian Disposition Disposition: Acute Care Hospital Discharge Location: [facility]
[2023-12-13] MEDS: levETIRAcetam IV 500 MG in 0.9% Normal Saline (100mL Bag) 100 ML 420 MG IV (11:28)
--- NOTE | 2023-12-13 11:31 | RAD_ITS ---
STUDY: X-RAY CHEST REASON FOR EXAM: Female, 23 years old. Rales. TECHNIQUE: Single frontal view of the chest. COMPARISON: None. FINDINGS: The lungs are clear and expanded. There is no demonstrated pleural abnormality. Normal size heart. Normal mediastinum and carola. Normal visualized pulmonary arteries. Normal visualized aortic arch and descending thoracic aorta. No abnormality of the visualized soft tissue structures of the upper abdomen. RAD/Chest 1 View (Portable) IMPRESSION: Normal x-ray examination of the chest. Electronically Signed: Ras Escudero MD at 11:52 EDT ,
[2023-12-13 11:33] VITALS: BP 126/82; PULSE 95; RESP 14; O2SAT 96
[2023-12-13 11:42] LABS: Absolute Lymphocyte Count 1.43 X10^3/uL (0.83-4.51); Absolute Neutrophil Count 10.4 X10^3/uL (2.0-7.7); Basophil# 0.04 X10^3/uL; Basophil% 0.3 % (0-1); Eosinophil# 0.05 X10^3/uL; Eosinophils% 0.4 % (0-5); Hematocrit 39.7 % (37-47); Hemoglobin 12.9 g/dL (12.0-15.0); Lymphocyte # 1.43 X10^3/ul (0.83-4.51); Lymphocyte % 11.4 % (19-41); Mean Corp Hgb Conc 32.5 g/dL (32-36); Mean Corpuscular Volume 89.2 fL (81-99); Monocyte# 0.55 X10^3/uL; Monocyte% 4.4 % (0-10); NRBC Flagged by Analyzer 0 % (0-5); Neutrophil # 10.44 X10^3/uL (2.7-7.7); Platelet Count 196 K/mm3 (150-450); RBC Distribution Width CV 11.8 % (11.6-14.6); RBC Distribution Width SD 37.9 fl (35.1-43.9); Red Blood Count 4.45 M/mm3 (4.2-5.4); White Blood Count 12.6 K/mm3 (4.4-11.0)
[2023-12-13 11:47] LABS: Bedside Glucose 113 mg/dL (74-106)
[2023-12-13 11:52] LABS: Prothrombin Time (Protime)PT. 13.6 SECONDS (11.7-14.9)
[2023-12-13 11:53] LABS: Partial Thromboplast Time 24.2 Seconds (24.1-36.2)
[2023-12-13 11:58] LABS: AST(SGOT) 128 U/L (15-37); Alanine Aminotransfer ALT/SGPT 120 U/L (13-56); Alkaline Phosphatase 201 U/L (45-117); Anion Gap 11 (5-15); BUN 10 mg/dL (7-18); BUN/Creat Ratio 14.6 RATIO (10-20); Bilirubin, Direct 0.17 mg/dL (0.00-0.30); Calcium,Total 8.5 mg/dL (8.5-10.1); Chloride 107 mmol/L (98-107); Creatinine, Serum 0.69 mg/dL (0.55-1.02); EST Glomerular Filtration Rate 112 mL/min (>60); Est Glom Filt Rate - Afr Amer 136 mL/min (>60); Estimated Creatinine Clearance 138.37 ml/min; Globulin 3.6 g/dL (2.2-4.2); Glucose 135 mg/dL (74-106); Potassium 3.2 mmol/L (3.5-5.1); Protein, Total 6.6 g/dL (6.4-8.2); Sodium Level 139 mmol/L (136-145); Uric Acid 4.5 mg/dL (2.6-6.0)
[2023-12-13 12:03] VITALS: BP 164/78; PULSE 112; RESP 16; O2SAT 98
[2023-12-13] MEDS: LORazepam 2 MG/ML Syringe 4 MG IV (12:08)
[2023-12-13 12:20] LABS: Magnesium 1.5 mg/dL (1.6-2.6)
[2023-12-13 12:23] LABS: Troponin-I HS 707 pg/mL (3.0-54.0)
[2023-12-13 12:30] VITALS: BP 112/78; PULSE 64; RESP 18; O2SAT 100
[2023-12-13 12:34] LABS: Mucous, Urine 0 SEEN /hpf (<or=2+); Squamous Epithelial Cells - UA 0 SEEN /hpf (5-10); White Blood Cells 0 SEEN /hpf (0-5)
--- NOTE | 2023-12-13 12:35 | RAD_ITS ---
STUDY: X-RAY CHEST REASON FOR EXAM: Female, 23 years old. Respiratory failure TECHNIQUE: Single AP portable view of the chest. COMPARISON: Earlier today FINDINGS: Patient has been intubated, tip of the ET tube is 1 cm above the brent and could be retracted another 2 to 3 cm. NG tube tip not seen but is well below the diaphragm. EKG leads overlie the chest The lungs are clear and expanded. There is no demonstrated pleural abnormality. Normal size heart. Normal mediastinum and carola. Normal visualized pulmonary arteries. Normal visualized aortic arch and descending thoracic aorta. Normal visualized thoracic spine. Normal visualized ribs, clavicles, and shoulders. There is no demonstrated abnormality of the visualized soft tissue structures of the upper abdomen. RAD/Chest 1 View (Portable) IMPRESSION: No acute pulmonary process Support lines and tubes as described, the ET tube tip sits on a 1 cm above the brent and could be retracted another 2 to 3 cm. Electronically Signed: Trey Hollis MD at 12:49 EDT ,
[2023-12-13 12:36] VITALS: RESP 12; RESP 17
[2023-12-13 12:37] LABS: Color, Urine Yellow (Yellow); Glucose, Dipstick Normal (Normal); Ketone-Dipstick Negative (Negative); Leukocyte Esterase-Dipstick Negative /ul (Negative); Nitrite-Dipstick Negative (Negative); Occult Blood-Urine 50 /ul (Negative); Protein-Dipstick 500 mg/dl (Negative); Specific Gravity, Urine 1.015 (1.002-1.030); Urine Bilirubin Dipstick Negative (Negative); Urine Clarity Clear (Clear); Urine Urobilinogen Normal (Normal); Urine pH 6.5 (5.0 - 8.0)
[2023-12-13 12:58] LABS: Amphetamine Urine VISTA NEGATIVE (<1000 ng/mL); Bacteria 2+ /hpf (None Seen); Barbiturate Urine VISTA NEGATIVE (< 200 ng/mL); Benzodiazepine Urine VISTA NEGATIVE (< 200 ng/mL); Cocaine Urine VISTA NEGATIVE (< 300 ng/mL); Ecstacy Urine VISTA NEGATIVE (< 500 ng/mL); Methadone Urine VISTA NEGATIVE (< 300 ng/mL); PCP Urine VISTA NEGATIVE (< 25 ng/mL); Red Blood Cells-Urine 0-5 SEEN /hpf (0-5); THC Urine VISTA NEGATIVE (< 50 ng/mL); Vista UDS pH Range 6
[2023-12-13 12:58] LABS: Allen Test Positive; Base Excess -7 mmol/L (-2 to +2); Bicarbonate 19.5 mmol/L (22-26); Blood Gas Specimen Type ART; Mode AC; O2 Delivery Device Adult Vent; PEEP 5; PO2 264 mmHG (75-100); RR 12; SITE R Radial; SO2 100 % (95-99); Total Carbon Dioxide 21 mmol/L; pCO2 40.5 mmHg (35-45); pH 7.29 (7.35-7.45)
[2023-12-13 13:00] VITALS: BP 99/78; PULSE 115; RESP 16; O2SAT 100
[2023-12-13] MEDS: Amiodarone 150 MG in Dextrose 5%-Water (100mL Bag) 100 ML 618 MG IV BOLUS (13:12)
[2023-12-13] MEDS: Magnesium 2 GM IV (13:13)
[2023-12-13] MEDS: Potassium Chloride 10mEq/100mL 10 MEQ/100 ML IV.SOLN. 100 MEQ IV BOLUS (13:15)
--- NOTE | 2023-12-13 13:15 | RAD_ITS ---
STUDY: X-RAY CHEST REASON FOR EXAM: Female, 23 years old. Central line placement TECHNIQUE: Single AP portable view of the chest. COMPARISON: Earlier today FINDINGS: Stable appearance of the ET tube, NG tube and EKG leads. A right IJ central venous catheter is been placed since the previous study, tip is in the distal SVC The lungs are clear and expanded. There is no demonstrated pleural abnormality. Normal size heart. Normal mediastinum and carola. Normal visualized pulmonary arteries. Normal visualized aortic arch and descending thoracic aorta. Normal visualized thoracic spine. Normal visualized ribs, clavicles, and shoulders. There is no demonstrated abnormality of the visualized soft tissue structures of the upper abdomen. RAD/Chest 1 View (Portable) IMPRESSION: No acute pulmonary process Support lines and tubes as described Electronically Signed: Trey Hollis MD at 13:38 EDT ,
[2023-12-13 13:19] LABS: Magnesium 1.5 mg/dL (1.6-2.6)
--- NOTE | 2023-12-13 14:10 | ED.RN ---
Addendum entered by Clayton Steward 12/13/23 15:10: OVER PT. VISIT PT RECEIVED, ROUGHLY 4L OF NORMAL SALINE Original Note: 1208: PT CALL LIGHT GOES OFF, PT STATES PT IS GOING TO HAVE A SEIZURE AGAIN. DR. HURST WALKING PAST ROOM. 4MG ATIVAN GIVEN. PT HEART RATE GOES INTO TORSADES: DR. HURST STARTS CPR. CODE INITIATED(CODE TEAM DR. PALACIOS, Santo STEWARD RN, Fernando ESPINO RN, Shereen PANTOJA RN, Jyoti MEZA, AND LADAN ). 164/78, 106, HR, 95% 4L. 1209 200J SHOCK DELIVERED 4MG MAG GIVEN. PT BACK TO NSR- WITH PULSE 1210 PT BACK TO TORSADES CPR STARTED 200J SHOCK DELIVERED- PT TO NSR- WITH PULSE 1211- DR. GOFF TO ROOO PT BACK INTO TORSADES CPR INITIATED 200J DELIVERED, 4MG MAG. BACK TO SR WITH PULSE 1212- PT BACK TO TORSADES, CPR RE-INTIATATD 6MG MAG GIVEN, 200J SHOCK DELIVERED BACK TO SR WITH PULSE 1216- DR. HURST ORDERED 75 SUC'S GIVEN. AND 20 ATOMIDATE GIVEN. STARTS INTUBATION.. 120HR, 100% BAG MASK, 129/69 BP 1219- 23 CM AT LIP 7.5 TUBE. GOOD COLOR CHANGE. 1224-PT MOVED TO ROOM 1 XRAY WAITING. PROPOFOL STARTED 20MCG/KG 104/71, HR 126, 100% 1254- BLOOD GASES OBTAINED 1255- OG, AND ANDRADE PLACED. 1312- AMIO BOLUS STARTED 1313- MAG DRIP STARTED 1315- POTASSIUM DRIP STARTED 1330- DR. HURST INSERTS CENTRAL LINE INTO RIGHT IJ. XRAY OBTAINED FOR PLACEMENT. 1335- LIFEFLIGHT ARRIVES TO ROOM. DR. HURST INTO GIVE REPORT TO LIFEFLIGHT. 99/59, 101, 100% 1339- TORSADES ON THE MONITOR- 5MG MAG GIVEN SHOCKED 300J CPR CONTINUED 1340- 100LIDO GIVEN CPR CONTINUED. 1341- PT GOES INTO TORSADES 1MG MAG GIVEN. 97/56, 100% 1342- 300J DELIVERED CPR CONTINUED 1443- 5MG MAG GIVEN 1345- PT IN ASYSTOLE 102/78, 100% PT SHOCK CPR CONTINUED 1347- PULSES CHECK, SHOCKED EPI GIVEN. CPR CONTINUED 1348- 1 AMP BICARB GIVEN 1349-PULSE CHECK, CPR CONTINUED , AMP BICARB 1350- PT INTO TORSADES 300J CHOCK, EPI, AND 5MG MAG GIVEN. 94/43, 100% 1352- CPR CONTINUED. 1354- DR. HURST, AND SHELL DISCUSSES OPTIONS, PT SHOCKED, CPR RESUMED. 1355- 1 AMP BICARB GIVEN 101/65, 100% 1357- LIFEFLIGHT RN AND DR. HURST TRY DUAL SHOCK. PT STILL IN TORSADES CPR RESUMED 1359- DUAL SHOCKED ATTEMPTED AGAIN PT STILL IN TORSADES. 1400- 5MG MAG GIVEN. 104/72, 100%, DR. HURST SPEAKS WITH RETURNS TO ROOM STATES LETS DO 2 MORE ROUNDS 1401-PULSE CHECK- PT IN VFIB SHOCK DELIVERED CONTINUED CPR. 1403- PULSE CHECK DUAL SHOCK DELIVERED. EPI GIVEN. TORSADES ON MONITOR. 1405- PULSE CHECK. SHOCK DELIVERED. 105/61, 100% BAG 1406- DR. HURST CALLS TIME OF .
[2023-12-13 14:33] LABS: Lipase 40 U/L (13-75)
--- NOTE | 2023-12-13 15:33 | CHAPLAIN ---
Type of Pastoral Visit ___ Initial Visit ___ Follow-up Visit ___ On-call Visit ___ General Patient Visit ___ Spiritual Assessment ___ Family Conference ___ Bereavement ___ Rapid Response _x__ Code Blue ___ Other (describe below) Pastoral Care Referral From ___ Patient ___ Family ___ Nurse ___ Physician ___ Phys Assistant ___ Sociology Professor _x__ Other (describe below) Sacrament/Intervention _x__ Active listening ___ Anointing ___ Yazidi _x__ Bereavement ___ Communion ___ Amaya exploration ___ ___ Life review _x__ Prayer ___ Reconciliation ___ Sacrament of Sick _x__ Supportive presence ___ Wedding ___ Other (describe below) Pastoral Comments responded to code blue in the ED and discovered the patient being medically treated and with several family members present in the hallway; family members include the spouse, mother and father of patient, and the 29 day old of the patient; the spouse was present but only answered questions as needed; the parents of the patient were emotional and questioning what was happening; calm presence given with regular offering of support, beverages, and assistance; father of patient verbally stated I appreciate the offer but I can't talk to you right now and thus the father was given some space to walk, pace, and he then took the infant out of the area; mother of the soon arrived and gave support to the spouse/her son; later came a sister and by time of several more relatives had arrived including father of the spouse who gave strong support to the spouse; during this time the patient was revived, then coded a second time before the helicopter squad came for transport; pt was revived again; during this time this chief nursing officer remained involved with the family and assisted in several ways; an offer of prayer was given and spouse and his mother were welcoming of such; mother of the spouse indicated that the prayer request had gone out to a number of prayer chains in the state; the patient coded a third time and again much support and presence was given; another family meeting took place with the ER doctor and OB doctor; the patient however did not recover after many attempts to sustain life; at time of a moment of silence was called by this chief nursing officer in the room including the medical staff; a bereavement cart was given; an ICU nurse came to assist in providing fingerprints on wooden hearts for the family, and a white luis was given as well; this chief nursing officer checked on several staff members who had given care and on the life flight squad who were involved; the family members were escorted in and out of the room when the appropriate time came and were also checked on as they walked outside and through the unit
--- NOTE | 2023-12-13 16:15 | PN_ITS ---
Progress Note During the patient's ER evaluation and resuscitation efforts I arrived to provide any additional insight and evaluation. Recommendation for magnesium for hospital eclampsia with atypical picture due to the timing of being 4-weeks and normal blood pressures being present. Patient had denied any headaches or blurry vision upon admission. Per family she had not had any diarrhea and wasn't taking any new medications leading up to the evaluation. Patient had persistent cardiac arrhythmia despite resuscitative efforts. mag level checked and still low despite replacement so additional given. The ER physician consulted the tertiary care center receiving transport and followed their recommendations, and I called [facility] cardiology over the phone during resuscitation to provide any additional input or insight for resuscitative efforts. Despite efforts patient deteriorated and did not respond, became asystolic and was pronounced by the ER physician. Support given to family, available information and insight provided as best I was able to.
--- NOTE | 2023-12-13 17:40 | ED.RN ---
1520: ANNA FROM CORONERS OFFICE ARRIVES
--- NOTE | 2023-12-13 17:41 | ED.RN ---
ANNA FROM CORONERS OFFICE LEAVES WITH BODY
== END 2023-12-13 17:39 ==
PROVIDERS: Obstetrics & Gynecology; Emergency Provider Emergency Medicine; Visit Provider Emergency Medicine
DX: O99.43 Diseases of the circulatory system complicating the puerperium (principal); J96.01 Acute respiratory failure with hypoxia; I46.9 Cardiac arrest, cause unspecified; I49.01 Ventricular fibrillation; I47.21 Torsades de pointes; I21.4 Non-ST elevation (NSTEMI) myocardial infarction; G40.401 Other generalized epilepsy and epileptic syndromes, not intractable, with status epilepticus; E87.6 Hypokalemia; Z87.891 Personal history of nicotine dependence; Z82.49 Family history of ischemic heart disease and other diseases of the circulatory system; Z86.14 Personal history of Methicillin resistant Staphylococcus aureus infection; Z87.440 Personal history of urinary (tract) infections; O99.355 Diseases of the nervous system complicating the puerperium; O99.285 Endocrine, nutritional and metabolic diseases complicating the puerperium
CPT/HCPCS: 43752; 36556; 31500; 31720; 36600; 70450; 71045; 80048; 80076; 80307; 81001; 82803; 82962; 83690; 83735; 84484; 84550; 85025; 85610; 85730; 92950; 93005; 94002; 99283; J7030; A4216; J3475; J3490